=== PATIENT | female | born 1990 | race Caucasian/White ===

== ENCOUNTER 2018-05-29 11:41 | Outpatient (REF) | payer MEDICAID, SELFPAY ==
--- NOTE | 2018-05-29 10:30 | PAPFT_PTH ---
PATIENT: Driss Campa LOC: [facility] U#:[id number] AGE/SX: 28/F ROOM: RE05/29/[address]: Lilliam Salas NP : 1990 BED: DIS: 05/29/2018 SPEC #: [id number] RECD: 05/29/18 12:52 STATUS: INEZ BARRON #: [id number] ANIL: 05/29/18 10:[address]: Lilliam Salas NP DEPT: [facility] Cytology RECD BY: Moon Waite ENTERED: 05/29/18 12:52 SP TYPE: PAPFT OTHR DR: Lisbeth Kamara APRN Tissues: 1 - CX/ENDOCX FOR PAP SMEARS Procedures: PAP THIN PREP/UVM Screening Comments: [id number] (CHLAMYDIA/GC)
[2018-05-30 14:38] LABS: Chlamydia Result Negative; GC Result Negative; Specimen Description SEE COMMENTS
== END 2018-05-29 12:01 ==
LOC: LBN 11:41
PROVIDERS: PCP Nurse Practitioner Family; Visit Provider Nurse Practitioner Women's Health
DX: Z12.4 Encounter for screening for malignant neoplasm of cervix (principal); Z11.3 Encounter for screening for infections with a predominantly sexual mode of transmission
CPT/HCPCS: 87491; 87591; 88142

== ENCOUNTER 2018-10-11 11:14 | Outpatient (CLI) | payer MEDICAID, SELFPAY ==
[2018-10-11 11:32] LABS: HGB 12.8 g/dL (12.0-15.5); Mean Corp. HGB Concentration 33.7 g/dL (32.0-36.0); Mean Corpuscular Hemoglobin 31.1 pg (27.0-33.0); Mean Corpuscular Volume 92.5 fL (80-95); Mean Platelet Volume 9.5 fL (8.0-11.0); Platelet Count 278 x1000/uL (130-400); RBC 4.11 m/cumm (4.00-5.20); RBC Distribution Width 13.5 % (11.7-14.6); White Blood Cell Count 7.43 k/cumm (4.4-10.8)
[2018-10-11 12:34] LABS: TSH (W/Ref FT4) 0.91 uIU/mL (0.358-3.74)
== END 2018-10-11 11:34 ==
PROVIDERS: PCP Nurse Practitioner Family; Visit Provider Nurse Practitioner Women's Health
DX: L65.9 Nonscarring hair loss, unspecified (principal)
CPT/HCPCS: 36415; 85027; 84443

== ENCOUNTER 2018-10-30 13:08 | Outpatient (CLI) | payer MEDICAID, SELFPAY ==
[2018-11-01 12:25] LABS: IgA 247 mg/dL (85-499); Interpretation SEE COMMENTS; Tissue Transglutaminase IgA <1.2 U/mL (<4.0)
== END 2018-10-30 13:28 ==
PROVIDERS: PCP Nurse Practitioner Family; Visit Provider Nurse Practitioner
DX: R19.8 Other specified symptoms and signs involving the digestive system and abdomen (principal); Z83.79 Family history of other diseases of the digestive system
CPT/HCPCS: 82784; 83516

== ENCOUNTER 2020-01-20 04:06 | Outpatient (CLI) | payer MEDICAID, SELFPAY ==
[2020-01-20 08:35] LABS: Hemoglobin A1C 5.5 % (<5.7)
[2020-01-21 12:18] LABS: Hepatitis C Ab w Rflx HCV PCR Negative (Negative)
== END 2020-01-20 04:26 ==
PROVIDERS: PCP Nurse Practitioner Family; Visit Provider Nurse Practitioner Family
DX: Z11.59 Encounter for screening for other viral diseases (principal); Z86.32 Personal history of gestational diabetes
CPT/HCPCS: 36415; 86803; 83036

== ENCOUNTER 2020-03-26 04:22 | Outpatient (CLI) | payer MEDICAID, SELFPAY ==
--- NOTE | 2020-03-26 06:15 | DI.RAD_ITS ---
EXAM: XR FINGER RT LITTLE CLINICAL HISTORY: Pain, swelling ?ortho vs. other?,M79.89,M79.644. TECHNIQUE: 2D digital imaging was performed. COMPARISON: No exams were available for comparison FINDINGS: BONES: No acute fracture is present. No bony destructive lesion is seen. JOINTS: No dislocation present. SOFT TISSUE: Normal. IMPRESSION: No evidence of acute fracture, dislocation, or subluxation. DATA REPOSITORY: RADIATION DOSE DELIVERED:
== END 2020-03-26 04:42 ==
PROVIDERS: PCP Nurse Practitioner Family; Visit Provider Nurse Practitioner Family
DX: M79.644 Pain in right finger(s) (principal); M79.89 Other specified soft tissue disorders
CPT/HCPCS: 73140

== ENCOUNTER 2020-03-29 05:07 | Outpatient (CLI) | payer MEDICAID, SELFPAY ==
[2020-04-01 04:57] LABS: Patient Race White; SARS-CoV-2 RNA Undetected (Undetected); SARS-CoV-2 Specimen Source Nasal
== END 2020-03-29 05:27 ==
PROVIDERS: PCP Nurse Practitioner Family; Visit Provider Nurse Practitioner Family
DX: J11.89 Influenza due to unidentified influenza virus with other manifestations (principal)
CPT/HCPCS: U0003

== ENCOUNTER 2021-04-06 11:58 | Outpatient (REF) | payer MEDICAID, SELFPAY ==
--- NOTE | 2021-04-06 09:15 | PAPFT_PTH ---
PATIENT: Driss Campa LOC: [facility] U#:[id number] AGE/SX: 30/F ROOM: RE04/06/[address]: Lilliam Salas NP : 1990 BED: DIS: 04/06/2021 SPEC #: [id number] RECD: 04/06/21 12:47 STATUS: INEZ REQ #: [id number] ANIL: 04/06/21 09:[address]: Josue MELTON,Lilliam DEPT: [facility] Cytology RECD BY: Moon Waite ENTERED: 04/06/21 12:47 SP TYPE: PAPFT OTHR DR: Lisbeth Kamara APRN Tissues: 1 - CX/ENDOCX FOR PAP SMEARS Procedures: PAP THIN PREP/UVM Screening HPV DNA PROBE Comments: [id number] (CHLAMYDIA/GC)
[2021-04-07 13:39] LABS: Chlamydia Result Negative (Negative); GC Result Negative (Negative)
== END 2021-04-06 11:59 | disposition home or self-care (01) ==
LOC: LBN 11:58
PROVIDERS: PCP Nurse Practitioner Family; Visit Provider Nurse Practitioner Women's Health
DX: Z12.4 Encounter for screening for malignant neoplasm of cervix (principal); Z11.3 Encounter for screening for infections with a predominantly sexual mode of transmission; R87.610 Atypical squamous cells of undetermined significance on cytologic smear of cervix (ASC-US); Z11.51 Encounter for screening for human papillomavirus (HPV); R87.820 Cervical low risk human papillomavirus (HPV) DNA test positive
CPT/HCPCS: 87491; 87591; 88142; 87624

== ENCOUNTER 2021-04-21 11:32 | Outpatient (REF) | payer MEDICAID, SELFPAY ==
--- NOTE | 2021-04-21 09:00 | ENDO_PTH ---
PATIENT: Driss Campa LOC: [facility] U#:[id number] AGE/SX: 30/F ROOM: RE04/21/[address]: Rima Quinonez DO : 1990 BED: DIS: 04/21/2021 SPEC #: [id number] RECD: 04/21/21 12:35 STATUS: INEZ REQ #: [id number] ANIL: 04/21/21 09:[address]: Rima Quinonez DEPT: Surgical Specimen RECD BY: Moon Waite ENTERED: 04/21/21 12:35 SP TYPE: Endo OTHR DR: Lisbeth Kamara APRN Tissues: 1 - ENDOCERVICAL BX/CURRETTE 2 - CERVICAL BIOPSY Procedures: GROSS AND MICRO LEVEL 4 Comments: [id number]
== END 2021-04-21 11:33 | disposition home or self-care (01) ==
LOC: LBN 11:32
PROVIDERS: PCP Nurse Practitioner Family; Visit Provider Obstetrics & Gynecology
DX: D26.0 Other benign neoplasm of cervix uteri (principal)
CPT/HCPCS: 88305

== ENCOUNTER 2022-01-27 15:30 | Outpatient (REF) | payer MEDICAID, SELFPAY ==
[2022-01-30 11:23] LABS: Measles IgG Antibody Positive (See Note)
[2022-01-30 11:25] LABS: Rubella IgG Ab (UVM) Positive (See Note)
[2022-02-01 16:26] LABS: Measles (Rubeola), IgM Negative (Negative)
[2022-02-07 14:12] LABS: Index Value 1.61 (0.00-0.79); Mumps Ab, IgG Equivocal; Mumps Ab, IgM Positive (Negative)
== END 2022-01-27 15:31 | disposition home or self-care (01) ==
LOC: LBN 15:30
PROVIDERS: PCP Nurse Practitioner Family; Visit Provider Nurse Practitioner Family
DX: Z01.84 Encounter for antibody response examination (principal); Z02.0 Encounter for examination for admission to educational institution
CPT/HCPCS: 83735; 86735; 86765; 86762

== ENCOUNTER → 2022-03-03 01:05 | Outpatient (CLI) | payer MEDICAID, SELFPAY ==
--- OUTSIDE RECORDS SUMMARY | 2022-03-03 01:09 | XMS_ITS | Clinical Summary ---
:1990 Author Organization [facility] [place] [address] Care Team Providers Name Role Phone Lisbeth Kamara APRN Primary Care Provider Allergies Active Allergy Reactions Severity Noted Date Comments Nickel 02/08/2022 Hydrocodone-Acetaminophen 02/08/2022 Medications No known medications Encounters Date Type Specialty Care Team Description 02/27/2022 Telephone Orthopaedics Leonel Weems MD Question s 02/08/2022 Hospital Encounter Radiology Leonel Weems MD Ma ss of left wrist 02/08/2022 Office Visit Orthopaedics Leonel Weems MD Mass of left wrist 01/30/2022 Transcribe Orders Primary Care Maia Best, RYDER Cunningham glion cyst of wrist, left from Last 3 Months Social History Tobacco Use Types Packs/Day Years Used Date Never Smoker Sex Assigned at Date Recorded Not on file Last Filed Vital Signs Vital Sign Reading Time Taken Comments Blood Pressure 102/56 02/08/2022 4:37 PM EDT Pulse 86 02/08/2022 4:37 PM EDT Temperature 36.7 ??C (98.1 ??F) 02/08/2022 4:37 PM EDT Respiratory Rate - - Oxygen Saturation - - Inhaled Oxygen Concentration - - Weight 77.1 kg (169 lb 14.4 oz) 02/08/2022 4:37 PM EDT Height 162.6 cm (5' 4) 02/08/2022 4:37 PM EDT Body Mass Index 29.16 02/08/2022 4:37 PM EDT Plan of Treatment Upcoming Encounters Date Type Specialty Care Team Description 05/08/2022 Hospital Encounter Surgery Leonel Weems MD [facility] ORTHOPAEDIC SURG [place], [place] [address] (Wo rk) 05/08/2022 Surgery Surgery Leonel Weems MD EXCISION GANGLION, [facility] WRIST, DO RSAL OR VOLAR, DR PRIMARY (WRVU 3.53) ORTHOPAEDIC SURG [place], [place] [address] (Wo rk) 05/23/2022 Office Visit Orthopaedics Leonel Weems MD [facility] ORTHOPAEDIC SURG [place], [place] [address] (Wo rk) Scheduled Procedures Name Priority Associated Diagnoses Date/Time EXCISION GANGLION, WRIST, DORSAL Mass of left wr ist 05/08/2022 7:35 AM EST OR VOLAR, PRIMARY (WRVU 3.53) Health Maintenance Due Date Last Done Comments Covid-19 Vaccine (#1) 1990 HIV screen 2010 Hepatitis C Screening 2010 Tdap adult 2011 Tetanus vaccine 2011 PAP Smear 2013 Influenza (Flu) vaccine (1 of 1 - Influenza standard 01/19/2022 series) Procedures Procedure Name Priority Date/Time Associated Diagnosis Comme nts XR WRIST 3 VIEWS Routine 02/08/2022 5:58 PM Mass of left wrist Results for this LEFT EDT procedure are i n the results section. from Last 3 Months Results XR Wrist 3 Views Left (02/08/2022 5:58 PM EDT) Anatomical Region Laterality Modality Left Digital Radiography Specimen (Source) Anatomical Location Collection Method / Collectio n Time Received Time / Laterality Volume Impressions 02/09/2022 3:09 PM EDT Normal wrist radiograph. I have personally reviewed the image(s) and the resident's interpretation and agree with the findings, Shahana Renae MD at 02/09/2022 3:09 PM Thank you for letting us participate in the care of this patient. ??If you are a health care provider and have any questi ons regarding this report, please contact the number below. ??For patients who have questions please contact the health healthcare receptionist that requested your imaging first. ? Electronically signed by: Xavi Vieira, [facility] ([phone]), at 02/09/2022 3:09 PM Narrative 02/09/2022 3:09 PM EDT EXAMINATION: XR WRIST 3 VIEWS LEFT CLINICAL HISTORY: left wrist pain few we eks, likely ganglion cyst, eval underlying bony pathology (as entered by the ordering provider in the order requisition). TECHNIQUE: Lateral, PA, and oblique views of the le ft wrist. COMPARISON: None FINDINGS: No fracture or malalignment. The joint s paces and articular surfaces are normal. No destructive osseous lesions. No soft tissue swelling. Procedure Note Shahana Renae MD - 02/09/2022Formattin g of this note might be different from the original. EXAMINATION: XR WRIST 3 VIEWS LEFT CLINICAL HISTORY: left wrist pain few we eks, likely ganglion cyst, eval underlying bony pathology (as entered by the ordering provider in the order requisition). TECHNIQUE: Lateral, PA, and oblique views of the le ft wrist. COMPARISON: None FINDINGS: No fracture or malalignment. The joint s paces and articular surfaces are normal. No destructive osseous lesions. No soft tissue swelling. IMPRESSION Normal wrist radiograph. I have personally reviewed the image(s) and the resident's interpretation and agree with the findings, Shahana Renae MD at 02/09/2022 3:09 PM Thank you for letting us participate in the care of this patient. If you are a health care provider and have any questi ons regarding this report, please contact the number below. For patients w ho have questions please contact the health healthcare receptionist that requested your imaging first. 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
--- OUTSIDE RECORDS SUMMARY | 2022-03-03 01:09 | XMS_ITS | Encounter Summary ---
:1990 Author Organization [facility] [place] [address] Care Team Providers Name Role Phone Lisbeth Kamara APRN Primary Care Provider Encounter Details Date Type Department Care Team Description 02/08/2022 Hospital Encounter XRay at [facility] Leonel Weems, Mass of left wrist [address] [place] [address] Dr MD [place] [id number] [place] [address] ORTHOPAEDIC SURGERY [place] [id number] Social History Tobacco Use Types Packs/Day Years Used Date Never Smoker Sex Assigned at Date Recorded Not on file documented as of this encounter Plan of Treatment Upcoming Encounters Date Type Specialty Care Team Description 05/08/2022 Hospital Encounter Surgery Leonel Weems MD [facility] ORTHOPAEDIC SURG [place], [place] [address] (Wo rk) 05/08/2022 Surgery Surgery Leonel Weems MD EXCISION GANGLION, [facility] WRIST, DO RSAL OR VOLAR, DR YOU (WRVU 3.53) ORTHOPAEDIC SURG [place], [place] [address] (Wo rk) 05/23/2022 Office Visit Orthopaedics Leonel Weems MD [facility] ORTHOPAEDIC SURG [place], [place] [address] (Wo rk) Scheduled Procedures Name Priority Associated Diagnoses Date/Time EXCISION GANGLION, WRIST, DORSAL Mass of left wr ist 05/08/2022 7:35 AM EST OR VOLAR, PRIMARY (WRVU 3.53) documented as of this encounter Procedures Procedure Name Priority Date/Time Associated Diagnosis Comme nts XR WRIST 3 VIEWS Routine 02/08/2022 5:58 PM Mass of left wrist Results for this LEFT EDT procedure are i n the results section. documented in this encounter Results XR Wrist 3 Views Left (02/08/2022 5:58 PM EDT) Anatomical Region Laterality Modality Left Digital Radiography Specimen (Source) Anatomical Location Collection Method / Collectio n Time Received Time / Laterality Volume Impressions 02/09/2022 3:09 PM EDT Normal wrist radiograph. I have personally reviewed the image(s) and the resident's interpretation and agree with the findings, Shahana Rneae MD at 02/09/2022 3:09 PM Thank you for letting us participate in the care of this patient. ??If you are a health care provider and have any questi ons regarding this report, please contact the number below. ??For patients who have questions please contact the health senior care specialist that requested your imaging first. ? Narrative 02/09/2022 3:09 PM EDT EXAMINATION: XR [...] ho have questions please contact the health senior care specialist that requested your imaging first. Leonel Weems MD IMG DX ORDERABLES documented in this encounter Visit Diagnoses Diagnosis Mass of left wrist Mass of left wrist documented in this encounter Care Teams Manager Medicare Marketing Relationship Specialty Start Date End Date Lisbeth Kamara APRN PCP - General 02/09/[address] [place] [address] documented as of this encounter
--- OUTSIDE RECORDS SUMMARY | 2022-03-03 01:09 | XMS_ITS | Encounter Summary ---
:1990 Author Organization [facility] [place] [address] Care Team Providers Name Role Phone Esperanza Kamaraestrella Duron APRN Primary Care Provider Reason for Visit Reason Comments Establish Care Ganglion cyst left wrist Consultation (Urgent) - Closed Specialty Diagnoses / Procedures Referred By Contact Refer red To Contact Orthopaedics Diagnoses LEFT WRIST PAIN, LUMP, GANGLION CYST UNDER/NEAR THUMB Maia Best PA [facility] Orthopaedics [address] [place], [place] [address] [place] [address] Fax: Referral ID Status Reason Start Date Expiration Date Visits Requ ested Visits Authorized [id number] Closed 01/30/2022 01/30/2023 1 1 Encounter Details Date Type Department Care Team Description 02/08/2022 Office Visit Orthopaedics [place] [facility] Leonel Weems A, Mass of left wrist [facility] [place] [address] [facility] [phone] ORTHOPAEDIC SURGERY [place], [place] [address] Social History Tobacco Use Types Packs/Day Years Used Date Never Smoker Sex Assigned at Date Recorded Not on file documented as of this encounter Last Filed Vital Signs Vital Sign Reading [...] Mass Index 29.16 02/08/2022 4:37 PM EDT documented in this encounter Progress Notes Leonel Weems MD - 02/08/2022 4:30 PM EDT ORTHOPAEDIC SURGERY CLINIC NEW PATIENT EVALUATION DATE OF VISIT: 02/08/22 Chief complaint: Chief Complaint Patient presents with ??? Establish Care Ganglion cyst left wrist Date of injury: n/a History of present illness: Driss Campa is a 31 y.o. year-old female LHD who is seen today for Left volar wrist mass Feels she has had wrist pain for some time, had wrist pain for a week before the bump showed up, then noticed the bump approximately 2 weeks ago. Tried resting it, had trouble sleeping due to pain. Continued normal activities but with discomfort. Trialed OTC wrist brace with some improvement. Did see urgent care. Denies any known injury. No Xrays to date. Bump changes in size day to day. States pinching sensations sometimes with certain wrist movements. Occasional numbness in fingers transient at end of the day. Today feels bump was larger. 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 Past Medical history: There are no problems to display for this patient. History of blood clots or bleeding disorders: Denies Medications: No current outpatient medications on file. Allergies: Allergies Allergen Reactions ??? Nickel ??? Vicodin [Hydrocodone-Acetaminophen] Social history: Social History Tobacco Use ??? Smoking status: Never Smoker ??? Smokeless tobacco: Not on file Substance Use Topics ??? 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 No flowsheet data found. No flowsheet data found. Vital signs: Temp: [36.7 ??C (98.1 ??F)] Heart Rate: [86] BP: (102)/(56) Body mass index is 29.16 kg/m??. Physical Exam: No acute distress Affect within normal limits for age Alert and oriented Speech clear and intact, appropriate for age Head atraumatic Respirations unlabored Brisk capillary refill peripheral bilateral upper extremities, warm and well perfused LUE examined: Sensation intact to light touch all digits and palm/dorsal hand today. Small subcentimeter volar radial wrist mass 5/5 EPL, FPL, EDC, FDP/FDS, WE, WF, GAURAV, 5/5 palmar abduction thumb No clinical deformity Supple pain free ROM wrist, symmetric Negative Tinel's sign at wrist and elbow, negative Durken's compression Imaging: Personal review of the patient's imaging reveals: Wrist xray negative for significant arthritis with osteophytes, bony mass at base of thumb, or evidence of fracture/dislocation. Assessment/Plan: 31 y.o. year-old female LHD with Left wrist pain x 2-3 weeks and small volar radialsoft tissue fullness for 2 weeks most consistent with Ganglion cyst. We did discuss a full differential for lumps and bumps in the hand. Reviewed options for operative and nonoperative treatment. Given proximity to artery at volar wrist, do not recommend aspiration/injection trials. We did review clinical observation vs further imaging, with patient preference for imaging and removal. We discussed at length indications for removal -- I reviewed specifically that cysts are often not associated with pain, and her acute wrist pain may or may not be related to this small mass. She very much wanted removal, and we discussed in detail risks of surgery, including worsening pain, stiffness, scar, injury to artery or associated structures, as well as recurrence. I did suggest observation with further imaging, but if she would like removal after understanding the risks and potential for persistent symptoms, we can arrange that for her after a period of observation and an Ultrasound. Plan: Ultrasound wrist ordered Activity as tolerated Symptomatic treatment of pain Recommended wrist splint during activity, padding over mass. Surgical order is placed for patient planning at her request. Patient to call sooner with any questions or concerns. This plan was discussed with the patient and they are in agreement. All of the patient's questions were answered, and they were satisfied with the discussion. Follow up: Telemed or inperson visit after ultrasound. The above dictation was made with voice recognition software. Leonel Weems MD, MPH Department of Orthopaedic Surgery Pediatric Orthopaedic & Hand Surgeon Siena Ji RN - 02/08/2022 4:30 PM EDT Pre Op Education General Guidelines: Driss was educated on importance of staying healthy and maintaining skin integrity, especially of effected arm pre-op. She will inform us of any skin rashes, breaks in skin or illnesses prior to surgery. There is not any skin break down today. General post op guidelines discussed including hydration, nutrition, constipation, and dressing changes. Management of the extremity post op was also discussed to include DME use and rest, ice, elevation. Driss was given a bottle of Hibiclens to be used in the shower the night before and the morning of their procedure. Showering instructions were reviewed. We reviewed medications to stop prior to surgery: - no ASA or NSAIDS 7 days prior to surgery. 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 No flowsheet data found. Driss Campa will NOT be prescribed a prescription opioid for the treatment of acute post-operative pain related to Orthopedic surgery. Patient was given vicoden after wisdom teeth were out and this made her very sick. She does not wantany narcotics. In addition to this medication, non-opioid medications will be prescribed for adjunct treatment of their pain. Non-pharmacological treatment such as ice, elevation and activity modification will be recommended as appropriate. The Acute Opioid Therapy Informed Consent form has NOT been completed and sent to medical records for scanning to chart. Written material given: Ortho department phone Tree. Ultrasound order, Patient is to book at hospital closer to her home. Directions to the [facility] Patient stopped for x ray of wrist upon leaving today. Questions solicited and answered. She knows to call with any additional questions or concerns. Driss was advised to read the post-op instructions from day of surgery for specific recommendations and restrictions post-operatively. Siena Ji RN [facility] Ortho Team documented in this encounter Plan of Treatment Upcoming Encounters Date Type Specialty Care Team Description 05/08/2022 Hospital Encounter Surgery Leonel Weems MD [facility] DR ORTHOPAEDIC SURG [place], [place] [address] (Wo rk) 05/08/2022 Surgery Surgery Leonel Weems MD EXCISION GANGLION, [facility] WRIST, DO RSAL OR VOLAR, DR YOU (WRVU 3.53) ORTHOPAEDIC SURG [place], [place] [address] (Wo rk) 05/23/2022 Office Visit Orthopaedics Leonel Weems MD [facility] ORTHOPAEDIC SURG [place], [place] [address] (Wo rk) Scheduled Orders Name Type Priority Associated Diagnoses Order S chedule US Extremity Non Imaging Routine Mass of left wrist Expec francheska: 02/09/2022, Vascular Limited Left s: 08/11/2022 SURGICAL CASE REQUEST: Procedures Routine Mass of left wrist Ordered: 02/12/2022 EXCISION GANGLION, WRIST, DORSAL OR VOLAR, PRIMARY (WRVU 3.53) Scheduled Procedures Name Priority Associated Diagnoses Date/Time EXCISION GANGLION, WRIST, DORSAL Mass of left wr ist 05/08/2022 7:35 AM EST OR VOLAR, PRIMARY (WRVU 3.53) documented as of this encounter Results XR Wrist 3 Views [...] who have questions please contact the health care partner that requested your imaging first. ? Narrative [...] interpretation and agree with the findings, Shahana eRnae MD at 02/09/2022 3:09 PM Thank you for letting us participate in the care of this patient. If you are a health care provider and have any questi ons regarding this report, please contact the number below. For patients w ho have questions please contact the health care partner that requested your imaging first. Leonel Weems MD IMG DX ORDERABLES documented in this encounter Visit Diagnoses Diagnosis Mass of left wrist Mass of left wrist Mass of left wrist documented in this encounter Care Teams Sign Shop Supervisor Relationship Specialty Start Date End Date Lisbeth Kamara, BLAST FURNACE CHECKER PCP - General 02/09/15 [address] [facility] [address] [place] [address] documented as of this encounter
--- OUTSIDE RECORDS SUMMARY | 2022-03-03 01:09 | XMS_ITS | Encounter Summary ---
:1990 Author Organization [facility] [address] Care Team Providers Name Role Phone Lisbeth Kamara APRN Primary Care Provider Reason for Visit Reason Onset Date Comments Questions 02/27/2022 Encounter Details Date Type Department Care Team Description 02/27/2022 Telephone [place] [facility] Leonel Weems MD [facility] [address] [facility] [place] [address] ORTHOPAEDIC SURGERY [phone] [place], [place] [address] (Wo rk) Social History Tobacco Use Types Packs/Day Years Used Date Never Smoker Sex Assigned at Date Recorded Not on file documented as of this encounter Miscellaneous Notes Telephone Encounter - Siena Ji RN - 02/28/2022 8:24 AM EDT Gave permission for Ultrasound to be done externally. Plan patient to have Ultrasound done at [facility]. Fax # Siena Ji RN [facility] [place] Telephone Encounter - Adriana Leyva - 02/27/2022 2:37 PM EDTSummary: U/S ORDER Driss has spoken with [facility] and they have not received the order for her U/S that Dr. Weems needs. [facility] states when we send it electronically, they do not receive it. Could we please print it and FAXit the old fashioned way? FAX: [phone] Thank you! documented in this encounter Plan of Treatment Upcoming Encounters Date Type Specialty Care Team Description 05/08/2022 Hospital Encounter Surgery Leonel Weems MD [facility] ORTHOPAEDIC SURG [place], [place] [address] (Wo rk) 05/08/2022 Surgery Surgery Leonel Weems MD EXCISION GANGLION, [facility] WRIST, DO RSAL OR VOLAR, PRIMARY (WRVU 3.53) ORTHOPAEDIC SURG [place], [place] [address] (Wo rk) 05/23/2022 Office Visit Orthopaedics Leonel Weems MD [facility] ORTHOPAEDIC SURG [place], [place] [address] (Wo rk) Scheduled Procedures Name Priority Associated Diagnoses Date/Time EXCISION GANGLION, WRIST, DORSAL Mass of left wr ist 05/08/2022 7:35 AM EST OR VOLAR, PRIMARY (WRVU 3.53) documented as of this encounter Visit Diagnoses Not on filedocumented in this encounter Care Teams Infant Teacher Relationship Specialty Start Date End Date Lisbeth Kamara APRN PCP - General 02/09/15 [address] [place] [address] documented as of this encounter
--- OUTSIDE RECORDS SUMMARY | 2022-03-03 01:09 | XMS_ITS | Encounter Summary ---
:1990 Author Organization [facility] Address [address] [place] [address] Care Team Providers Name Role Phone Unknown, Provider Primary Care Provider Encounter Details Date Type Department Care Team Description 04/21/2021 Lab Requisition [facility] Rima Quinonez Encounter for other Pathology & [facility] general examination Laboratory Medicine [facility] [id number] [address] [facility] [phone] [place] [address] (Work) [phone] Social History Tobacco Use Types Packs/Day Years Used Date Never Assessed Sex Assigned at Date Recorded Not on file documented as of this encounter Plan of Treatment Not on filedocumented as of this encounter Procedures Procedure Name Priority Date/Time Associated Diagnosis Comme nts SURGICAL PATHOLOGY Today 04/21/2021 9:00 EST Encounter for o ther Results for this general examination procedur e are in the results section. documented in this encounter Results SURGICAL PATHOLOGY (04/21/2021 9:00 EST) Note to Patient The following [facility] MEDICAL pathology results CENTER have been interpreted LABORATORY by your pathologist SERVICES and may be available to you before your health provider has had the opportunity to review them. Please allow time for your provider to receive these results and explore management options, if applicable. Final Diagnosis A. CERVIX, ENDOCERVICAL CURETTAGE: [facility] MEDICAL - Fragments of benign endocervix. CENTER LABORATORY B. CERVIX, 2 O'CLOCK, BIOPSY: SERVICES - Benign squamous mucosa with reactive epithelial vega ges. Attestation There was significant [facility] MEDICAL Electr onically resident/fellow CENTER signed by Rafael connell, involvement in the LABORATORY Maninder Alan MD on diagnostic evaluation SERVICES 021 at 0930 of this case. By the signature below, the attending physician certifies that they have personally conducted a gross and/or microscopic examination of the described specimens and rendered or confirmed the above diagnosis. Clinical History ASCUS +HR HPV [facility] LABORATORY SERVICES Gross Description A. [facility] MEDICAL Received in formalin mark anthony d with proper patient identification (initials M, L) and ECC is an aggregate of clear colorless mucinous material admixed with scant fragments of cooper-white tissue. The spec CENTER imen measures 1.0 x 0.5 x 0.2 cm in aggr egate and is submitted entirely in A1. LABORATORY SERVICES B. Received in formalin mark anthony d with proper patient identification (initials M, L) and cervix bx 2 o'clock is a cooper-white tissue measuring 0.2 x 0.2 x 0.2 cm. Submitted intact in B1. RYDER DOWNING(ASCP) 04/21/2021 18:07 Resident/Fellow: Elsie German DO [facility] LABORATORY SERVICES Performing Lab [facility] LAB [facility] LABORATORY SERVICES Scanned Images [facility] LABORATORY SERVICES Specimen Tissue - Entire wall of cervix (body str ucture) Tissue specimen (specimen) - Entire wall of cervix (body structure) Performing Organization Address City/State/ZIP Code Phon e Number [facility] LABORATORY [address] [place] [address] SERVICES documented in this encounter Visit Diagnoses Diagnosis Encounter for other general examination documented in this encounter Care Teams Cash Register Operator Relationship Specialty Start Date End Date Unknown, Provider, PCP - General 07/17/13 documented as of this encounter
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
--- OUTSIDE RECORDS SUMMARY | 2022-03-03 01:09 | XMS_ITS | Encounter Summary ---
:1990 Author Organization [facility] [place] [address] Care Team Providers Name Role Phone Lisbeth Kamara APRN Primary Care Provider Reason for Visit Reason Comments Skin Lesion Consultation (Routine) - Closed Specialty Diagnoses / Procedures Referred By Contact Refer red To Contact Dermatology Diagnoses Disorder of the skin and subcutaneous tissue, unspecified Lisbeth Kamara APRN [facility] Dermatology [address] [place] [id number] Referral ID Status Reason Start Date Expiration Date Visits V isits Requested Authorized [id number] Closed Consult, Test 06/28/2020 06/28/2021 6 [facility] PCP Updated and/or Approved Encounter Details Date Type Department Care Team Description 08/02/2020 Office Visit Dermatology at [facility] Fibrous papule of Bozena Freed MD nose [address] [place] [address] [facility] [address]-DERMATOLOGY [place], [place] [address] Social History Tobacco Use Types Packs/Day Years Used Date Never Smoker Sex Assigned at Date Recorded Not on file documented as of this encounter Progress Notes Venessa Abarca MD - 08/02/2020 11:00 AM EDT Images from the original note were not included. DERMATOLOGY - NEW PATIENT NOTE Date of service: 08/02/2020 Driss Kaur : 1990, 30 y.o. Chief Complaint: Chief Complaint Patient presents with ??? Skin Lesion HPI: Driss Kaur is a 30 y.o. female referred by Lisbeth Kamara with the following concerns: - Lesion on the left side of nose, present ~ 6 months, not changing in size. Has bled after picking at it, but has since healed and is now a flesh colored bump. Denies tenderness. Relevant Skin History: - Okay to leave detailed message with results? yes - Skin cancer (including type): No Family History: Melanoma: No Relevant Social History: - Works at a [employer] Meds: Current Outpatient Medications Medication Sig Dispense Refill ??? DEBLITANE 0.35 mg Tablet 0 No current facility-administered medications for this visit. Allergies: No Known Allergies Review of Systems: - General: Feels well - Skin: No other skin concerns. Examination: - Constitutional: Patient was alert, well-appearing and in no noticeable distress. - Focused Exam: Skin examination of the face was normal with the exception of the findings listed below - A nurse/MA was present and on standby during my examination. 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 Inferior to it is a similar somewhat flatter lesion. - Discussed etiology and benign nature of lesion - No treatment necessary # Keratosis Pilaris - On the lateral upper extremities, pink slightly hyperkeratotic follicular based papules. Keratosis pilaris is an exceedingly common, benign skin disorder of the follicular orifice, commonlyreferred to as gooseflesh. It is characterized by small hair centered papules on the posterior upper arms and thighs due to the retention of skin at the follicular opening. It is seen most frequentlyin children, adolescents, and young adults, and is particularly common in individuals with underlying eczema. Dry weather may make these skin changes more pronounced. Frequently, there is a family history of the condition - Discussed etiology - Advised Amlactin (Ammonium Lactate) or CeraVe SA or KP kit by [place] C: PRN Note initiated by WALE Saunders. I, WALE Saunders, have performed the documentation for this encounter in the presence of and acting as a scribe for Venessa Abarca MD. I performed the services which were documented by the scribe, and I agree with the accuracy of the documentation in this encounter. Venessa Abarca MD Reviewed and signed by Venessa Abarca MD Resident in Dermatology [facility] Patient seen in conjunction with staff computer help desk representative: Cristy Reagan MD Department of Dermatology [facility] Cristy Reagan MD - 08/02/2020 11:00 AM EDT I directly supervised the Dermatology resident during this office visit. The resident presented the history and physical exam to me. I then saw and examined this patient with the resident. We reviewed the history and pertinent details and I confirmed the physical findings. I agree with the details of the history and physical exam as documented in the resident's note. CRISTY REAGAN MD Staff Physician documented in this encounter Plan of Treatment Upcoming Encounters Date Type Specialty Care Team Description 05/08/2022 Hospital Encounter Surgery Leonel Weems MD [facility] ORTHOPAEDIC SURG [place], [place] [address] (Wo rk) 05/08/2022 Surgery Surgery Leonel Weems MD EXCISION GANGLION, [facility] WRIST, DO RSAL OR VOLAR, PRIMARY (WRVU 3.53) ORTHOPAEDIC SURG [place], [place] [address] (Wo rk) 05/23/2022 Office Visit Orthopaedics Leonel Weems MD [facility] DR ORTHOPAEDIC SURG [place], [place] [address] (Wo rk) Scheduled Procedures Name Priority Associated Diagnoses Date/Time EXCISION GANGLION, WRIST, DORSAL Mass of left wr ist 05/08/2022 7:35 AM EST OR VOLAR, PRIMARY (WRVU 3.53) documented as of this encounter Visit Diagnoses Diagnosis Fibrous papule of nose Benign neoplasm of skin of other and uns pecified parts of face Mass of left wrist documented in this encounter Care Teams Skid Man Relationship Specialty Start Date End Date Lisbeth Kamara APRN PCP - General 02/09/[address] [place] [address] documented as of this encounter
--- OUTSIDE RECORDS SUMMARY | 2022-03-03 01:09 | XMS_ITS | Clinical Summary ---
:1990 Author Organization [facility] Address [address] [place] [address] Care Team Providers Name Role Phone Unknown, Provider Primary Care Provider Encounters Date Type Specialty Care Team Description 01/27/2022 Lab Requisition Clinical Laboratory Outr Resulting Lab , Provider from Last 3 Months Social History Tobacco Use Types Packs/Day Years Used Date Never Assessed Sex Assigned at Date Recorded Not on file Plan of Treatment Health Maintenance Due Date Last Done Comments COVID-19 Vaccine (1) 1997 Hepatitis C Screen Completed 01/20/2020 Procedures Procedure Name Priority Date/Time Associated Diagnosis Comme nts MEASLES IGG AB Routine 01/27/2022 14:50 Results f or this EDT procedure are i n the results section. RUBELLA IGG Routine 01/27/2022 14:50 Results for this ANTIBODY EDT procedure are i n the results section. from Last 3 Months Results MEASLES IGG AB (01/27/2022 14:50 EDT) Measles IgG Ab PositiveComment: See Note [facility] Presence of LABORATORY SERVICES detectable measles virus IgG antibodies. Specimen Blood - Venous blood (substance) Performing Organization Address City/[facility]/ZIP Code Phon e Number [facility] LABORATORY [address] [place] [address] SERVICES RUBELLA IGG ANTIBODY (01/27/2022 14:50 EDT) Rubella IgG Ab PositiveComment: See Note [facility] Positive for IgG LABORATORY SERVICES antibodies to Rubella virus. Specimen Blood - Venous blood (substance) Performing Organization Address City/[facility]/ZIP Code Phon e Number [facility] LABORATORY [address] [place] [address] SERVICES from Last 3 Months Insurance Payer Benefit Plan Subscriber ID Effective Phone Address Typ e / Group Dates MEDICAID ACO MEDICAID ACO [id number] 2021-Pres [phone] [address] Medicaid [place] [address] [place], [place] [address] KatsinanDriss N Personal/Family Self [phone] [place] [address] KatsinanDriss N Personal/Family Self [phone] [place] [address] Driss Braga N Personal/Family Self [phone] [place] [address] Care Teams Turbo Operator Relationship Specialty Start Date End Date Unknown, Provider, PCP - General 07/17/13
--- OUTSIDE RECORDS SUMMARY | 2022-03-03 01:09 | XMS_ITS | Encounter Summary ---
:1990 Author Organization [facility] [place] [address] Care Team Providers Name Role Phone Esperanza Kamaraestrella Duron APRN Primary Care Provider Reason for Referral Consultation (Urgent) - Closed Specialty Diagnoses / Procedures Referred By Contact Refer red To Contact Orthopaedics Diagnoses Ganglion cyst of wrist, left Maia Best PA [facility] Orthopaedics [address] [address] Fax: Referral ID Status Reason Start Date Expiration Date Visits V isits Requested Authorized [id number] Closed Consult, Test 01/30/2022 01/30/2023 6 6 & Treat PCP Updated and/or Approved Encounter Details Date Type Department Care Team Description 01/30/2022 Transcribe Orders eDH Incoming Maia Best Gangli on cyst of Referrals RYDER wrist, left [phone] [address] [place] [address] Social History Tobacco Use Types Packs/Day Years Used Date Never Assessed Sex Assigned at Date Recorded Not on file documented as of this encounter Plan of Treatment Upcoming Encounters Date Type Specialty Care Team Description 05/08/2022 Hospital Encounter Surgery Qudsi, Leonel A, MD [facility] ORTHOPAEDIC SURG [place], [place] [address] (Wo rk) 05/08/2022 Surgery Surgery Leonel Weems MD EXCISION GANGLION, [facility] WRIST, DO RSAL OR VOLAR, DR PRIMARY (WRVU 3.53) ORTHOPAEDIC SURG [place], [place] [address] (Wo rk) 05/23/2022 Office Visit Orthopaedics Leonel Weems MD [facility] ORTHOPAEDIC SURG [place], [place] [address] (Wo rk) Scheduled Procedures Name Priority Associated Diagnoses Date/Time EXCISION GANGLION, WRIST, DORSAL Mass of left wr ist 05/08/2022 7:35 AM EST OR VOLAR, PRIMARY (WRVU 3.53) Scheduled Referrals Name Type Priority Associated Order Schedule Diagnoses Referral to Outpatient Referral STAT Ganglion cyst of Orde red: Orthopaedics wrist, left 01/30/2022 documented as of this encounter Visit Diagnoses Diagnosis Ganglion cyst of wrist, left Mass of left wrist documented in this encounter Care Teams Surveyor Chain Helper Relationship Specialty Start Date End Date Lisbeth Kamara APRN PCP - General 02/09/[address] [place] [address] documented as of this encounter
--- OUTSIDE RECORDS SUMMARY | 2022-03-03 01:10 | XMS_ITS | Encounter Summary ---
:1990 Author Organization [facility] Address [address] [place] [address] Care Team Providers Name Role Phone Unknown, Provider Primary Care Provider Encounter Details Date Type Department Care Team Description 04/07/2021 Lab Requisition [facility] Lilliam Salas En counter for other Pathology & A, USER EXPERIENCE TEAM LEAD general examination Laboratory Medicine [address], [place] [address] [facility] [address] [place] [address] Social History Tobacco Use Types Packs/Day Years Used Date Never Assessed Sex Assigned at Date Recorded Not on file documented as of this encounter Plan of Treatment Not on filedocumented as of this encounter Procedures Procedure Name Priority Date/Time Associated Comments Diagnosis PAP TEST Today 04/06/2021 9:15 Encounter for other Resul ts for this EST general examination procedur e are in the results section. HUMAN PAPILLOMAVIRUS Today 04/06/2021 9:15 Encounter for oth er Results for this (HPV) DETECTION-HIGH EST general examination procedure are in RISK TYPES the results section. documented in this encounter Results (ABNORMAL) HUMAN PAPILLOMAVIRUS (HPV) DETECTION-HIGH RISK TYPES (04/06/2021 9:15 EST) Human Papillomavirus Positive (A)Comment: Negative [facility] (HPV) Detection-High E6 OR E7 mRNA from CENTER Types one or more types of LABORATORY HPV types SERVICES 16,18,31,33,35,39,45, 51,52,56,58,59,66, and 68 is detected by terminal make up operator mediated amplification. High and intermediate risk HPV types are associated with most squamous intraepithelial lesions and cervical cancers. Specimen Pap Test - Cervix and/or Endocervix Performing Organization Address City/State/ZIP Code Phon e Number [facility] [address] [place] [address] SERVICES PAP TEST (04/06/2021 9:15 EST) Specimens A. Cervix and/or [facility] Endocervix , ThinPrep CENTER Imaging System with LABORATORY Manual Evaluation SERVICES Specimen Adequacy Satisfactory for [facility] Evaluation - [place] transformation zone LABORATORY component present SERVICES General Epithelial Cell [facility] Categorization Abnormality CENTER LABORATORY SERVICES Descriptive Squamous Cell [facility] Diagnosis Abnormality - CENTER Atypical squamous LABORATORY cells, undetermined SERVICES significance (ASC-US). Educational Comments [facility] recommends following A SCCP's 2012 Updated Consensus Guidelines for the Management of Abnormal Cervical Cancer Screening Tests and Cancer Precursors (JLGTD, 2013; 17(5):S1-S27). Consensus guidelines are available online at www.asccp.org. [facility] Attestation By the signature below, the attending physician certifies that they have personally conducted a gross and/or microscopic [facility] Electronically examination of the described specimens and rendered or confirmed the above diagnosis. CENTER signed by MARGUERITE Kwon MD SERVICES on 04/19/2021 a t 1540 Clinical History See below [facility] HPV The result for the Human Pap illomavirus (HPV) Detection-High Risk Types is Positive . E6 OR E7 mRNA from one or more types of HPV types 16,18,31,33,35,39,45,51,52,56,58,59,66, and 68 is detected by barbosa [facility] scription mediated amplifica tion. High and intermediate risk HPV types are associated with most squamous intraepithelial lesions and cervical cancers. Testing was performed on specimen [id number] and CENTER was resulted on 04/19/2021 1533 EST by NIMESH, LAB INSTRUMENT RESULTS IN LABORATORY SERVICES Performing Lab [facility] Scanned Images [facility] Specimen Pap Test - Cervix and/or Endocervix Performing Organization Address City/State/ZIP Code Phon e Number [facility] [address] [place] [address] SERVICES documented in this encounter Visit Diagnoses Diagnosis Encounter for other general examination documented in this encounter Care Teams Water Manager Relationship Specialty Start Date End Date Unknown, Provider, PCP - General 07/17/13 documented as of this encounter
--- OUTSIDE RECORDS SUMMARY | 2022-03-03 01:10 | XMS_ITS | Encounter Summary ---
:1990 Author Organization [facility] Address [address] [place] [address] Care Team Providers Name Role Phone Unknown, Provider Primary Care Provider Encounter Details Date Type Department Care Team Description 07/16/2015 Results Only [facility]- Catherine Leavitt, [facility] [phone] [place] [address] [place] [address] (Wo rk) Social History Tobacco Use Types Packs/Day Years Used Date Never Assessed Sex Assigned at Date Recorded Not on file documented as of this encounter Plan of Treatment Not on filedocumented as of this encounter Procedures Procedure Name Priority Date/Time Associated Diagnosis Comme nts PAP TEST- RESULT Routine 07/16/2015 0:00 EST Resu lts for this ONLY procedure are i n the results section. documented in this encounter Results PAP TEST- RESULT ONLY (07/16/2015 0:00 EST) Pathology Report: CYTOPATHOLOGY REPORT [facility] Reports generated via electronic interface contain yesenia ginal data; SERVICES however they are lacking the format of the original re port. Caution should be taken when reading/interpreting unfo rmatted reports. Name: ? DRISS THURSTON VALERY ? Accession #: ? [id number] : ? 1990 (Age: 25) ??F ?Collect Date: ? 07/16 Location: ? [facility] ? Receive Date : ? 07/19/2015 Provider: ?CATHERINE BEGUM PETROPHYSICAL ENGINEER Copy to: ?USHA WONG PETROPHYSICAL ENGINEER ? Specimen/Source: ? Pap Test, Cervix/Endocervix, ThinPrep Imaging System with manual evaluation Last Menstrual Period: ? 06/18/15 ? SPECIMEN ADEQUACY ? Satisfactory for Evaluation - transformation zone component present GENERAL CATEGORIZATION ? Negative for Intraepithelial Lesion or Malignan cy ? Document reviewed and electronically signed by: ? Geraldine Mcelroy, LEILA(ASCP) ? Report Date: ??07/23/2015 12:14 End of Report Specimen Performing Organization Address City/State/ZIP Code Phon e Number [facility] [address] [place] [address] SERVICES documented in this encounter Visit Diagnoses Not on filedocumented in this encounter Care Teams Extrusion Manager Relationship Specialty Start Date End Date Unknown, Provider, PCP - General 07/17/13 documented as of this encounter
--- OUTSIDE RECORDS SUMMARY | 2022-03-03 01:10 | XMS_ITS | Encounter Summary ---
:1990 Author Organization [facility] Address [address] [place] [address] Care Team Providers Name Role Phone Unknown, Provider Primary Care Provider Encounter Details Date Type Department Care Team Description 01/20/2020 Lab Requisition [facility] Outr Resulting Lab, Pathology & Laboratory Provider [facility] [address] [place] [address] Social History Tobacco Use Types Packs/Day Years Used Date Never Assessed Sex Assigned at Date Recorded Not on file documented as of this encounter Plan of Treatment Not on filedocumented as of this encounter Procedures Procedure Name Priority Date/Time Associated Diagnosis Comme nts HEPATITIS C AB W Routine 01/20/2020 8:19 EDT Resu lts for this REFLEX TO HCV RNA procedure are in BY PCR the results section. documented in this encounter Results HEPATITIS C AB W REFLEX TO HCV RNA BY PCR (01/20/2020 8:19 EDT) Pathologist Sig nature Hep C Antibody Negative Negative [facility] SERVICES Specimen Blood - Venous blood (substance) Performing Organization Address City/State/ZIP Code Phon e Number [facility] [address] [place] [address] SERVICES documented in this encounter Visit Diagnoses Not on filedocumented in this encounter Care Teams Upholsterer Outside Relationship Specialty Start Date End Date Unknown, Provider, PCP - General 07/17/13 documented as of this encounter
--- OUTSIDE RECORDS SUMMARY | 2022-03-03 01:10 | XMS_ITS | Encounter Summary ---
:1990 Author Organization [facility] Address [address] [place] [address] Care Team Providers Name Role Phone Unknown, Provider Primary Care Provider Encounter Details Date Type Department Care Team Description 07/16/2013 Results Only [facility] Christy Lackey CNM Laboratory Services - [address] [facility] [address] [address] [facility] [place] [address] [phone] Social History Tobacco Use Types Packs/Day Years Used Date Never Assessed Sex Assigned at Date Recorded Not on file documented as of this encounter Plan of Treatment Not on filedocumented as of this encounter Procedures Procedure Name Priority Date/Time Associated Diagnosis Comme nts PAP TEST- RESULT Routine 07/16/2013 0:00 EST Resu lts for this ONLY procedure are i n the results section. documented in this encounter Results PAP TEST- RESULT ONLY (07/16/2013 0:00 EST) Pathology Report: CYTOPATHOLOGY REPORT [facility] Reports generated via electronic interface contain yesenia ginal data; however they are lacking the format of the original re port. Caution should be taken when reading/interpreting unfo rmatted reports. Name: ? DRISS THURSTON VALERY ? Accession #: ? [id number] : ? 1990 (Age: 23) ??F ?Collect Date: ? 06/22 Location: ? [facility] ? Receive Date : ? 07/18/2013 Provider: ?ROBENeha LACKEY CNM Copy to: ? Specimen/Source: ? Pap Test, Cervix/Endocervix, ThinPrep Imaging System with manual evaluation Last Menstrual Period: ? 05/20/13 Menstrual/ Status: ? Other: ? Additional clinical information: 1st Pap ? SPECIMEN ADEQUACY ? Satisfactory for Evaluation - transformation zone component present GENERAL CATEGORIZATION ? Negative for Intraepithelial Lesion or Malignan cy INTERPRETATION ? Fungal organisms pres ent morphologically consistent with Beverly species. ? Document reviewed and electronically signed by: ? LEILA Hunter(ASCP) ? Report Date: ??07/25/2013 15:45 End of Report Specimen Performing Organization Address City/State/ZIP Code Phon e Number [facility] [address] [place] [address] SERVICES [facility] [address] [place] [address] documented in this encounter Visit Diagnoses Not on filedocumented in this encounter Care Teams Loan Review Analyst Relationship Specialty Start Date End Date Unknown, Provider, PCP - General 07/17/13 documented as of this encounter
--- OUTSIDE RECORDS SUMMARY | 2022-03-03 01:10 | XMS_ITS | Encounter Summary ---
:1990 Author Organization [facility] Address [address] [place] [address] Care Team Providers Name Role Phone Unknown, Provider Primary Care Provider Encounter Details Date Type Department Care Team Description 05/29/2018 Results Only [facility]- Huseyin Taylor, TRANSITIONAL CARE NURSE [phone] [facility] [facility] [place] [address] Social History Tobacco Use Types Packs/Day Years Used Date Never Assessed Sex Assigned at Date Recorded Not on file documented as of this encounter Plan of Treatment Not on filedocumented as of this encounter Procedures Procedure Name Priority Date/Time Associated Diagnosis Comme nts PAP TEST- RESULT Routine 05/29/2018 0:00 EST Resu lts for this ONLY procedure are i n the results section. documented in this encounter Results PAP TEST- RESULT ONLY (05/29/2018 0:00 EST) Pathology Report: CYTOPATHOLOGY REPORT [facility] Reports generated via electronic interface contain yesenia ginal data; SERVICES however they are lacking the format of the original re port. Caution should be taken when reading/interpreting unfo rmatted reports. Name: ? DRISS THURSTON ? Accession #: ? [id number] : ? 1990 (Age: 28) ??F ?Collect Date: ? 2018 Location: ? [facility] ? Receive Date : ? 05/30/2018 Provider: ?HUSEYIN CHANG TRANSITIONAL CARE NURSE Copy to: ?USHA OLSON SUPERVISOR FARM EQUIPMENT MAINTENANCE ? Specimen/Source: ? Pap Test, Cervix, ThinPrep Imaging System with manual evaluation Last Menstrual Period: ? 05/16/18 Hormonal/Contraceptive Status: ? Yes: PARAGARD ? SPECIMEN ADEQUACY ? Satisfactory for Evaluation - transformation zone component present GENERAL CATEGORIZATION ? Negative for Intraepithelial Lesion or Malignan cy INTERPRETATION ? Reactive cellular jorje nges associated with inflammation present (includes repair). Bacteria present morphologically consistent with Actin omyces species. ? Document reviewed and electronically signed by: ? JUANY LEWIS MD ? Report Date: ??06/06/2018 10:50 End of Report Specimen Performing Organization Address City/State/ZIP Code Phon e Number [facility] [address] [place] [address] SERVICES documented in this encounter Visit Diagnoses Not on filedocumented in this encounter Care Teams Science Faculty Member Relationship Specialty Start Date End Date Unknown, Provider, PCP - General 07/17/13 documented as of this encounter
--- NOTE | 2022-03-03 11:45 | DI.US_ITS ---
Exam(s) US SOFT TISSUE EXTREMITY EXAM: US SOFT TISSUE EXTREMITY CLINICAL HISTORY: LT WRIST VOLAR MASS, R22.32, ? GANGLION CYST. TECHNIQUE: Ultrasound was performed using standard protocol. COMPARISON: No exams were available for comparison FINDINGS: Sonographic assessment utilizing grayscale and color Doppler imaging was performed and targeted to th e area of clinical concern. There is a complex cystic lesion on the volar aspect of the wrist. It measures 0.4 x 0.2 x 0.3 cm. There does appear to be of communication with an underlying joint. This may represent a ganglion cys t. An MRI of the wrist should be considered for further evaluation. IMPRESSION: DATA REPOSITORY:
== END ==
PROVIDERS: PCP Nurse Practitioner Family; Visit Provider Orthopaedic Surgery
DX: R22.32 Localized swelling, mass and lump, left upper limb (principal)
CPT/HCPCS: 76881

== ENCOUNTER 2022-06-19 14:05 | Outpatient (REF) | payer MEDICAID, SELFPAY ==
--- NOTE | 2022-06-19 13:15 | PAPFT_PTH ---
PATIENT: Driss Campa LOC: [facility] U#:[id number] AGE/SX: 32/F ROOM: RE06/19/[address]: Lilliam Salas NP : 1990 BED: DIS: 06/19/2022 SPEC #: [id number] RECD: 06/19/22 17:42 STATUS: INEZ REQ #: [id number] ANIL: 06/19/22 13:[address]: Josue MELTON,Lilliam DEPT: [facility] Cytology RECD BY: Moon Waite ENTERED: 06/19/22 17:42 SP TYPE: PAPFT OTHR DR: Lisbeth Kamara APRN Tissues: 1 - CX/ENDOCX FOR PAP SMEARS Procedures: PAP THIN PREP/[facility] Screening HPV DNA PROBE Comments: [id number] (CHLAMYDIA/GC)
[2022-06-20 14:08] LABS: Chlamydia Result Negative (Negative); GC Result Negative (Negative)
== END 2022-06-19 14:06 | disposition home or self-care (01) ==
LOC: LBN 14:05
PROVIDERS: PCP Nurse Practitioner Family; Visit Provider Nurse Practitioner Women's Health
DX: Z11.3 Encounter for screening for infections with a predominantly sexual mode of transmission (principal); Z12.4 Encounter for screening for malignant neoplasm of cervix; Z87.42 Personal history of other diseases of the female genital tract; R87.612 Low grade squamous intraepithelial lesion on cytologic smear of cervix (LGSIL); Z11.51 Encounter for screening for human papillomavirus (HPV)
CPT/HCPCS: 87491; 87591; 88142; 87624

== ENCOUNTER 2022-07-17 02:53 | Outpatient (CLI) | payer MEDICAID, SELFPAY ==
[2022-07-17 10:24] LABS: Hemoglobin A1C 5.4 % (<5.7)
[2022-07-17 10:26] LABS: Calculated LDL 162 mg/dL (<100); Cholesterol 250 mg/dL (<200); HDL Cholesterol 73 mg/dL (40-60); Triglyceride 79 mg/dL (<150)
[2022-07-25 13:15] LABS: Index Value 1.27 (0.00-0.79); Mumps Ab, IgG Negative
[2022-07-25 13:37] LABS: Mumps Ab, IgM Positive (Negative)
== END 2022-07-17 02:54 | disposition home or self-care (01) ==
LOC: LBO 02:53
PROVIDERS: PCP Nurse Practitioner Family; Referring Provider Nurse Practitioner Family; Visit Provider Nurse Practitioner Family
DX: E78.5 Hyperlipidemia, unspecified (principal); Z13.1 Encounter for screening for diabetes mellitus; Z86.32 Personal history of gestational diabetes; Z78.9 Other specified health status
CPT/HCPCS: 36415; 80061; 83735; 86735; 83036

== ENCOUNTER 2022-07-21 09:51 | Outpatient (REF) | payer MEDICAID, SELFPAY ==
--- NOTE | 2022-07-21 09:00 | ENDO_PTH ---
PATIENT: Driss Campa LOC: [facility] U#:[id number] AGE/SX: 32/F ROOM: RE07/21/[address]: Kerrie Perez : 1990 BED: DIS: 07/21/2022 SPEC #: [id number] RECD: 07/21/22 12:47 STATUS: INEZ REQ #: [id number] ANIL: 07/21/22 09:[address]: So Dean DEPT: Surgical Specimen RECD BY: Moon Waite ENTERED: 07/21/22 12:48 SP TYPE: Endo OTHR DR: Lisbeth Kamara, JULISSA Tissues: 1 - ENDOCERVICAL BX/CURRETTE Procedures: GROSS AND MICRO LEVEL 4 Comments: [id number] @ Ordering doctor for SL4 edited from ASHLEY to SHANE @ by [email or web address] at 07/25/22 1504 @ Submitting doctor edited from ASHLEY to SHANE @ by [email or web address] at 07/25/22 1896
[2022-07-21 10:28] LABS: Abs Immature Grans 0.02 10^3/uL (0.0-0.06); Absolute Basophil Count 0.04 10^3/uL (0.0-0.2); Absolute Eosinophil Count 0.09 10^3/uL (0.0-0.7); Absolute Lymphocyte Count 2.22 10^3/uL (1.2-3.4); Absolute Neutrophil Count 3.67 10^3/uL (1.2-6.7); Basophils % 0.6; Eosinophils % 1.4; HCT 36.1 % (36.0-46.0); HGB 12.1 g/dL (11.2-15.7); Immature Grans % 0.3; Lymphocytes % 33.9; MCH 30.1 pg (27.0-33.0); MCHC 33.5 % (32.0-36.0); MCV 90 fL (80-95); MPV 10.2 fL (8.0-11.0); Monocytes % 7.6; Neutrophils % 56.2; Platelet Count 264 10^3/uL (130-400); RBC 4.02 10^6/uL (3.93-5.22); RDW 13.7 % (11.7-14.6); RDW-SD 45.3 fL; WBC 6.54 10^3/uL (4.4-10.8)
[2022-07-21 11:04] LABS: Ferritin 8 ng/mL (8-252)
[2022-07-24 13:41] LABS: ANA Interpretation Negative (Negative)
== END 2022-07-21 09:52 | disposition home or self-care (01) ==
LOC: LBN 09:51
PROVIDERS: PCP Nurse Practitioner Family; Visit Provider Surgery
DX: N87.1 Moderate cervical dysplasia (principal); R87.612 Low grade squamous intraepithelial lesion on cytologic smear of cervix (LGSIL); R87.810 Cervical high risk human papillomavirus (HPV) DNA test positive; K62.5 Hemorrhage of anus and rectum; K60.1 Chronic anal fissure; R79.89 Other specified abnormal findings of blood chemistry; Z83.79 Family history of other diseases of the digestive system
CPT/HCPCS: 88305; 82728; 85025; 86038

== ENCOUNTER 2022-12-15 01:34 | Outpatient (CLI) | payer MEDICAID, SELFPAY ==
[2022-12-15 15:58] LABS: Panorama Kit Sent via Fed Ex
[2022-12-15 16:01] LABS: Abs Immature Grans 0.05 10^3/uL (0.0-0.06); Absolute Basophil Count 0.03 10^3/uL (0.0-0.2); Absolute Eosinophil Count 0.07 10^3/uL (0.0-0.7); Absolute Lymphocyte Count 2.58 10^3/uL (1.2-3.4); Absolute Monocyte Count 0.54 10^3/uL (0.1-0.8); Absolute Neutrophil Count 7.01 10^3/uL (1.2-6.7); Basophils % 0.3; Eosinophils % 0.7; HCT 35.2 % (36.0-46.0); HGB 12.5 g/dL (11.2-15.7); Immature Grans % 0.5; Lymphocytes % 25.1; MCH 32.8 pg (27.0-33.0); MCHC 35.5 % (32.0-36.0); MCV 92 fL (80-95); MPV 9.8 fL (8.0-11.0); Monocytes % 5.3; Neutrophils % 68.1; Platelet Count 252 10^3/uL (130-400); RBC 3.81 10^6/uL (3.93-5.22); RDW 12.9 % (11.7-14.6); RDW-SD 43.8 fL; WBC 10.28 10^3/uL (4.4-10.8)
[2022-12-17 10:02] LABS: HIV-1/2 Ag & Ab Screen Negative (Negative)
[2022-12-18 10:39] LABS: Varicella IgG Antibody Negative (See Note)
[2022-12-18 10:43] LABS: Rubella IgG Ab (UVM) Positive (See Note)
[2022-12-18 15:18] LABS: Hepatitis C Ab w Rflx HCV PCR Negative (Negative)
[2022-12-18 15:46] LABS: Hepatitis B Surface Ag Negative (Negative)
[2022-12-19 18:38] LABS: Syphilis IgG w/Reflex Nonreactive (Nonreactive)
== END 2022-12-15 01:35 | disposition home or self-care (01) ==
LOC: LBO 01:34
PROVIDERS: PCP Nurse Practitioner Family; Visit Provider Advanced Practice Midwife
DX: Z34.91 Encounter for supervision of normal pregnancy, unspecified, first trimester (principal); Z3A.12 12 weeks gestation of pregnancy
CPT/HCPCS: 36415; 86787; 86803; 86850; 86900; 86901; 87340; 87389; 85025; 86762; 86780

== ENCOUNTER 2022-12-15 15:43 | Outpatient (REF) | payer MEDICAID, SELFPAY ==
[2022-12-15 16:57] LABS: *AMPHETAMINES SCREEN URINE Negative (Negative); *BARBITURATES SCREEN URINE Negative (Negative); *BENZODIAZEPINES SCREEN URINE Negative (Negative); Cannabinoids THC Negative (Negative); Cocaine Screen,Urine Negative (Negative); METHADONE URINE SCREEN Negative (Negative); OPIATES URINE SCREEN Negative (Negative)
[2022-12-15 17:01] LABS: Tricyclic Antidepressants Negative (Negative)
[2022-12-22 14:16] LABS: Buprenorphine Negative ng/mL (Cutoff: 5.0); Norbuprenorphine Negative ng/mL (Cutoff: 2.5)
== END 2022-12-15 15:44 | disposition home or self-care (01) ==
LOC: LBN 15:43
PROVIDERS: PCP Nurse Practitioner Family; Visit Provider Advanced Practice Midwife
DX: Z34.91 Encounter for supervision of normal pregnancy, unspecified, first trimester (principal); Z3A.12 12 weeks gestation of pregnancy
CPT/HCPCS: 80307; 80348; 87086

== ENCOUNTER 2023-01-10 14:27 | Emergency (ER) | payer MEDICAID, SELFPAY ==
[2023-01-10 15:04] VITALS: BP 103/58; PULSE 85; RESP 19; TEMP 37; O2SAT 99
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
[2023-01-10] MEDS: ACETAMINOPHEN 1,000 MG/100 ML BTL 400 MG IVPB (15:56)
[2023-01-10] MEDS: Dexamethasone 10 MG/ML VIAL IVP (15:57)
[2023-01-10] MEDS: Normal Saline 1,000 ML 1000 ML IV (15:57)
[2023-01-10] MEDS: Ondansetron 4 MG/2 ML VIAL IVP (15:58)
[2023-01-10 16:11] LABS: Abs Immature Grans 0.08 10^3/uL (0.0-0.06); Absolute Basophil Count 0.03 10^3/uL (0.0-0.2); Absolute Eosinophil Count 0.03 10^3/uL (0.0-0.7); Absolute Lymphocyte Count 1.84 10^3/uL (1.2-3.4); Absolute Monocyte Count 0.59 10^3/uL (0.1-0.8); Basophils % 0.3; Eosinophils % 0.3; HCT 35.8 % (36.0-46.0); HGB 12.5 g/dL (11.2-15.7); Immature Grans % 0.7; Lymphocytes % 15.9; MCH 32.4 pg (27.0-33.0); MCHC 34.9 % (32.0-36.0); MCV 93 fL (80-95); MPV 9.7 fL (8.0-11.0); Monocytes % 5.1; Neutrophils % 77.7; Platelet Count 238 10^3/uL (130-400); RBC 3.86 10^6/uL (3.93-5.22); RDW 12.9 % (11.7-14.6); RDW-SD 43.8 fL; WBC 11.55 10^3/uL (4.4-10.8)
[2023-01-10 16:22] LABS: Absolute Neutrophil Count 8.97 10^3/uL (1.2-6.7)
[2023-01-10 16:47] VITALS: BP 99/67; PULSE 78; RESP 15; TEMP 36.9; O2SAT 97
[2023-01-10 16:47] LABS: ALT 23 U/L (14-59); AST 15 U/L (15-37); Albumin 3.1 g/dL (3.4-5.0); Alkaline Phosphatase 45 U/L (46-116); BUN 8 mg/dL (7-18); Bilirubin, Total 0.3 mg/dL (0.2-1.0); CREATININE 0.6 mg/dL (0.55-1.02); Calcium 9.7 mg/dL (8.5-10.1); Chloride 102 mmol/L (98-107); Estimated GFR 123.76 (mL/min/1.73m2); Glucose 82 mg/dL (74-106); Potassium 3.9 mmol/L (3.5-5.1); Sodium 136 mmol/L (136-145); Total Protein 6.8 g/dL (6.4-8.2)
== END 2023-01-10 16:49 | disposition home or self-care (01) ==
PROVIDERS: Emergency Provider Emergency Medicine; PCP Nurse Practitioner Family
DX: O26.892 Other specified pregnancy related conditions, second trimester (principal); G43.909 Migraine, unspecified, not intractable, without status migrainosus; R11.2 Nausea with vomiting, unspecified; Z3A.16 16 weeks gestation of pregnancy
CPT/HCPCS: 80053; 96365; 99283; 85025; J0131; J1100; J2405

== ENCOUNTER 2023-01-12 11:36 | Outpatient (REF) | payer MEDICAID, SELFPAY ==
[2023-01-13 15:06] LABS: Chlamydia Result Negative (Negative); GC Result Negative (Negative)
== END 2023-01-12 11:37 | disposition home or self-care (01) ==
LOC: LBN 11:36
PROVIDERS: PCP Nurse Practitioner Family; Visit Provider Advanced Practice Midwife
DX: Z34.92 Encounter for supervision of normal pregnancy, unspecified, second trimester (principal); Z3A.16 16 weeks gestation of pregnancy; Z11.3 Encounter for screening for infections with a predominantly sexual mode of transmission
CPT/HCPCS: 87491; 87591

== ENCOUNTER → 2023-02-09 01:15 | Outpatient (CLI) | payer MEDICAID, SELFPAY ==
--- NOTE | 2023-02-09 07:30 | DI.US_ITS ---
Exam(s) US OB 2-3 TRIMESTER EXAM: US OB 2-3 TRIMESTER CLINICAL HISTORY: anatomy survey,z34.90. TECHNIQUE: Transabdominal obstetrical ultrasound performed. COMPARISON: US POCUS EXAM from 11/10/2022 FINDINGS: Number of fetuses: One. position: Variable Placental grade: 1 Placental location: Anterior. No evidence of previa. Cervix normal. BIOMETRIC DATA: BPD: 48mm = 20+ 4 weeks HC: 185mm = 20+ 6 weeks AC: 168mm = 21+5 weeks FL: 36mm = 21+ 4 weeks Cisterna Magna: 5 mm Cerebellum: 1.8 cm EFW: 515 grms above 97% Composite Age: 21+1 weeks EDC by US: 21 June 2023 Heart Rate: 141BPM Amniotic fluid : Amount of fluid is within normal limits. ANATOMICAL SURVEY: Four-chambered heart: Unremarkable. LVOT: Unremarkable. RVOT: Unremarkable. Left-sided stomach: Unremarkable. urinary bladder: Unremarkable. Bilateral kidneys: Unremarkable. Three-vessel cord: Unremarkable. Cord insertion: Unremarkable. Posterior fossa:Unremarkable. ventricles: Unremarkable. nose: Unremarkable. lips: Unremarkable. palate: Unremarkable. spine: Unremarkable. Two arms and two legs: Unremarkable. IMPRESSION: 1. Single live intrauterine gestation with composite age 21+1 weeks.. 2. Normal anatomic survey. DATA REPOSITORY:
== END ==
PROVIDERS: PCP Nurse Practitioner Family; Visit Provider Advanced Practice Midwife
DX: Z34.92 Encounter for supervision of normal pregnancy, unspecified, second trimester (principal)
CPT/HCPCS: 76805

== ENCOUNTER 2023-04-06 03:05 | Outpatient (CLI) | payer MEDICAID, SELFPAY ==
[2023-04-06 10:49] LABS: HCT 31.6 % (36.0-46.0); HGB 10.8 g/dL (11.2-15.7); MCHC 34.2 % (32.0-36.0); MCV 94 fL (80-95); MPV 9.8 fL (8.0-11.0); Platelet Count 284 10^3/uL (130-400); RBC 3.37 10^6/uL (3.93-5.22); RDW 12.7 % (11.7-14.6); RDW-SD 43.4 fL; WBC 10.75 10^3/uL (4.4-10.8)
[2023-04-06 11:04] LABS: Glucose,1 Hr (Glucola) 128 mg/dL (80-140)
== END 2023-04-06 03:06 | disposition home or self-care (01) ==
LOC: LBO 03:05
PROVIDERS: Advanced Practice Midwife; PCP Nurse Practitioner Family; Visit Provider Advanced Practice Midwife
DX: Z34.93 Encounter for supervision of normal pregnancy, unspecified, third trimester (principal)
CPT/HCPCS: 36415; 82950; 85027

== ENCOUNTER 2023-06-01 13:36 | Outpatient (CLI) | payer MEDICAID, SELFPAY ==
[2023-06-01 13:31] LABS: HCT 33.6 % (36.0-46.0); HGB 11.2 g/dL (11.2-15.7); MCH 30.4 pg (27.0-33.0); MCHC 33.3 % (32.0-36.0); MCV 91 fL (80-95); Platelet Count 231 10^3/uL (130-400); RBC 3.68 10^6/uL (3.93-5.22); RDW 13.3 % (11.7-14.6); RDW-SD 44.6 fL; WBC 9.59 10^3/uL (4.4-10.8)
--- OUTSIDE RECORDS SUMMARY | 2023-06-01 13:40 | XMS_ITS | Continuity of Care Document ---
Author Name Unknown Organization [facility] Address [address] [place] [id number] Care Team Providers Care Community Development Officer Name Role Phone USHA JIMÉNEZ Primary Care Physician Encounter [facility] FIN NBR [id number] Date(s): 05/05/22 - 11/24/[address] [address] [place] Encounter Diagnosis Carpal tunnel syndrome, bilateral upper limbs(Discharge Diagnosis) - 05/05/22 Carpal tunnel syndrome, bilateral upper limbs(Final) - Discharge Disposition: Home-No Follow Up Attending Physician: Tiki Agarwal Referring Physician: AMINA FAIR Functional Status 05/05/22 Prior ADL Status Independent Prior Instrumental ADL Level Independent Prior Cognitive-Communication Skills Ind ependent 05/05/22 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
== END 2023-06-01 13:37 | disposition home or self-care (01) ==
LOC: LBO 13:37
PROVIDERS: PCP Nurse Practitioner Family; Referring Provider Advanced Practice Midwife; Visit Provider Advanced Practice Midwife
DX: Z34.93 Encounter for supervision of normal pregnancy, unspecified, third trimester (principal)
CPT/HCPCS: 36415; 85027

== ENCOUNTER 2023-06-01 14:00 | Outpatient (REF) | payer MEDICAID, SELFPAY | END 2023-06-01 14:01 | disposition home or self-care (01) | LOC: LBN 14:00 | PROVIDERS: PCP Nurse Practitioner Family; Visit Provider Advanced Practice Midwife | DX: Z34.93 Encounter for supervision of normal pregnancy, unspecified, third trimester (principal); Z36.85 Encounter for antenatal screening for Streptococcus B; Z3A.36 36 weeks gestation of pregnancy | CPT/HCPCS: 87081 ==

== ENCOUNTER 2023-06-04 02:35 | Outpatient (CLI) | payer MEDICAID, SELFPAY ==
[2023-06-04 03:11] VITALS: BP 112/71; PULSE 74; TEMP 36.7
[2023-06-04 03:16] VITALS: BP 112/71; PULSE 74; TEMP 36.7
[2023-06-04] MEDS: Lactated Ringers 500 ML IV (03:46)
[2023-06-04] MEDS: Normal Saline Flush 10 ML SYR IVP (03:47)
[2023-06-04 03:58] VITALS: BP 113/57; PULSE 67
[2023-06-04 04:00] LABS: COMMENT (LAB VIEW ONLY) 55.81 mg/dL; PROTEIN 23.5 mg/dL; Prot/Crea Ur Ratio 0.42
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
[2023-06-04] MEDS: Ondansetron 4 MG/2 ML VIAL IVP (04:20)
[2023-06-04 04:33] LABS: Abs Immature Grans 0.14 10^3/uL (0.0-0.06); Absolute Basophil Count 0.04 10^3/uL (0.0-0.2); Absolute Lymphocyte Count 2.27 10^3/uL (1.2-3.4); Absolute Monocyte Count 0.72 10^3/uL (0.1-0.8); Absolute Neutrophil Count 6.83 10^3/uL (1.2-6.7); Basophils % 0.4; HCT 32.6 % (36.0-46.0); Immature Grans % 1.4; Lymphocytes % 22.5; MCHC 33.7 % (32.0-36.0); MCV 92 fL (80-95); MPV 10.4 fL (8.0-11.0); Monocytes % 7.1; Neutrophils % 67.6; Platelet Count 202 10^3/uL (130-400); RBC 3.55 10^6/uL (3.93-5.22); RDW 13.2 % (11.7-14.6); RDW-SD 45.1 fL
[2023-06-04] MEDS: Butalbital/Acetaminophen/Caffeine 50/325/40 TAB PO (04:46)
[2023-06-04] MEDS: Magnesium Oxide 400 MG TAB PO (04:47)
[2023-06-04 04:48] LABS: ALT 13 U/L (14-59); AST 13 U/L (15-37); Albumin 2.4 g/dL (3.4-5.0); Alkaline Phosphatase 95 U/L (46-116); Anion Gap 7.2 mmol/L (3-11); BUN 8 mg/dL (7-18); Bilirubin, Total 0.2 mg/dL (0.2-1.0); CO2 24.8 mmol/L (21.0-32.0); CREATININE 0.7 mg/dL (0.55-1.02); Calcium 8.9 mg/dL (8.5-10.1); Chloride 102 mmol/L (98-107); Estimated GFR 118.51 (mL/min/1.73m2); Glucose 93 mg/dL (74-106); Sodium 134 mmol/L (136-145); Total Protein 6.6 g/dL (6.4-8.2); Uric Acid 3.9 mg/dL (2.6-6.0)
[2023-06-04] MEDS: Lactated Ringers 1,000 ML 125 ML IV ×2 (04:50→08:11)
[2023-06-04 07:52] VITALS: BP 106/59; PULSE 68
[2023-06-04] MEDS: Magnesium Gluconate 500 MG TAB PO (08:48)
[2023-06-04 09:23] LABS: COMMENT (LAB VIEW ONLY) 29.05 mg/dL; PROTEIN 6.8 mg/dL; Prot/Crea Ur Ratio 0.23
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
== END 2023-06-04 09:40 | disposition home or self-care (01) ==
LOC: BCD 02:40 → OBS 03:03
PROVIDERS: PCP Nurse Practitioner Family; Visit Provider Advanced Practice Midwife
DX: G43.109 Migraine with aura, not intractable, without status migrainosus (principal); O99.891 Other specified diseases and conditions complicating pregnancy; Z3A.36 36 weeks gestation of pregnancy
CPT/HCPCS: 36415; 80053; 96368; 59025; 82565; 84156; 84550; 85025; J2405

== ENCOUNTER 2023-06-11 10:14 | Outpatient (CLI) | payer MEDICAID, SELFPAY ==
[2023-06-11 10:31] VITALS: BP 102/63; PULSE 81; TEMP 36.4
[2023-06-11 10:50] VITALS: BP 102/63; PULSE 81
--- NOTE | 2023-06-11 11:05 | W.OBNST ---
Date of service: 06/11/23 Time of Service: 11:05 NST Evaluation Reason for NST Reasons for Nonstress Test: DECREASED MOVEMENT Gestational Age Gestational Age in Weeks and Days: 37 Weeks and 3Days Test and Monitor Explained Test/Monitor Explained: Test Explained, Monitor Explained and Patient Verbalized Understanding Vital Signs Blood Pressure: 102/63 Pulse: 81 Temperature: 97.5 F NST Information Date on Monitor: 06/11/23 Time on Monitor: 10:34 NST Interventions: PO Hydration NST Evaluation Patient States Movement: Present FHR Baseline: 145 Variability: Moderate 6-25 bpm Accelerations: 15x15 Decelerations: None NST Results: Reactive Note Ultrasound Done: N/A. NST Note Note: NST normal and reassuring. To keep next appointment as scheduled. AUREA NST Reviewed and Verified by: Yancy Mojica
[2023-06-11 11:06] VITALS: BP 102/63; PULSE 81; TEMP 36.4
== END 2023-06-11 11:04 | disposition home or self-care (01) ==
LOC: BCD 10:15 → OBS 10:30
PROVIDERS: PCP Nurse Practitioner Family; Visit Provider Advanced Practice Midwife
DX: O36.8131 Decreased fetal movements, third trimester, fetus 1 (principal); Z3A.37 37 weeks gestation of pregnancy
CPT/HCPCS: 59025

== ENCOUNTER 2023-06-25 22:55 | Inpatient (IN) | payer MEDICAID, SELFPAY ==
[2023-06-25 23:00] VITALS: BP 130/72; PULSE 94; RESP 18; TEMP 36.6
[2023-06-25 23:03] VITALS: BP 130/72; PULSE 94
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
[2023-06-25 23:58] VITALS: BP 98/53; PULSE 80
[2023-06-26] VITALS (34 sets, daily range): BP systolic 80–141; BP diastolic 42–79; PULSE 63–107; RESP 16–18; TEMP 36.6–36.7; O2SAT 93–100; BMI 28.3
[2023-06-26 00:35] LABS: Abs Immature Grans 0.14 10^3/uL (0.0-0.06); Absolute Basophil Count 0.04 10^3/uL (0.0-0.2); Absolute Eosinophil Count 0.07 10^3/uL (0.0-0.7); Absolute Lymphocyte Count 2.33 10^3/uL (1.2-3.4); Absolute Monocyte Count 0.85 10^3/uL (0.1-0.8); Absolute Neutrophil Count 8.78 10^3/uL (1.2-6.7); Basophils % 0.3; Eosinophils % 0.6; HCT 35.5 % (36.0-46.0); HGB 11.9 g/dL (11.2-15.7); Immature Grans % 1.1; Lymphocytes % 19.1; MCH 29.3 pg (27.0-33.0); MCHC 33.5 % (32.0-36.0); MCV 87 fL (80-95); MPV 10.4 fL (8.0-11.0); Neutrophils % 71.9; Platelet Count 243 10^3/uL (130-400); RBC 4.06 10^6/uL (3.93-5.22); RDW 13.2 % (11.7-14.6); RDW-SD 42.5 fL; WBC 12.21 10^3/uL (4.4-10.8)
--- NOTE | 2023-06-26 01:29 | W.PM.OBNL1 ---
Date of service: 06/26/23 Time of Service: 01:29 Informed Consent Informed Consent: Regional Anesthesia Pelvic Exam Dilation: 7 Effacement (%): 80 station: -2 Cervix Position: posterior Consistency: soft Vaginal Exam Presentation: Vertex Contractions Monitor Mode: External Contraction Frequency(min): every 2-3 Contraction Duration(sec): strong Intensity: Moderate/Strong Fetus A Monitor: External (US) Heart Rate Baseline: 135 Variability: Moderate (6-25 BPM) Categories: Category I FHR Rhythm: Regular Accelerations: 15 X 15 Decelerations: None Amniotic Membrane Status: Intact Assessment and Plan Assessment and plan (1) Spontaneous onset of labor: Status: Acute Assessment and plan: AVIATION ELECTRICAL TECHNICIAN paged for epidural. Will prepare for epidural. Continued comfort measures. vertex presentation confirmed with POCUS. Anticipate . Objective Abnormal lab results 06/26/23 Range/Units 00:24 WBC 12.21 H (4.4-10.8) 10^3/uL Hct 35.5 L (36.0-46.0) % Absolute Neutrophils 8.78 H (1.2-6.7) 10^3/uL Absolute Monocytes 0.85 H (0.1-0.8) 10^3/uL Temp Pulse Resp BP 97.9 F 76 18 98/53 L 06/25/23 23:00 06/26/23 00:21 06/25/23 23:00 06/26/23 00:21 Laboratory Results WBC 12.21 10^3/uL (4.4-10.8) H 06/26/23 00:24 RBC 4.06 10^6/uL (3.93-5.22) 06/26/23 00:24 Hgb 11.9 g/dL (11.2-15.7) 06/26/23 00:24 Hct 35.5 % (36.0-46.0) L 06/26/23 00:24 MCV 87 fL (80-95) 06/26/23 00:24 MCH 29.3 pg (27.0-33.0) 06/26/23 00:24 MCHC 33.5 % (32.0-36.0) 06/26/23 00:24 RDW 13.2 % (11.7-14.6) 06/26/23 00:24 Plt Count 243 10^3/uL (130-400) 06/26/23 00:24 MPV 10.4 fL (8.0-11.0) 06/26/23 00:24 Immature Gran % 1.1 06/26/23 00:24 Neutrophils % 71.9 06/26/23 00:24 Lymphocytes % 19.1 06/26/23 00:24 Monocytes % 7.0 06/26/23 00:24 Eosinophils % 0.6 06/26/23 00:24 Basophils % 0.3 06/26/23 00:24 Nucleated RBC % 0.0 % (0.0-0.3) 06/26/23 00:24 Absolute Neutrophils 8.78 10^3/uL (1.2-6.7) H 06/26/23 00:24 Absolute Lymphocytes 2.33 10^3/uL (1.2-3.4) 06/26/23 00:24 Absolute Monocytes 0.85 10^3/uL (0.1-0.8) H 06/26/23 00:24 Absolute Eosinophils 0.07 10^3/uL (0.0-0.7) 06/26/23 00:24 Absolute Basophils 0.04 10^3/uL (0.0-0.2) 06/26/23 00:24 Patient ABO/Rh A Positive 06/26/23 00:24 Antibody Screen NEGATIVE 06/26/23 00:24 Subjective Patient Reports: New Complaints Interval history since last seen: Driss reports stronger contractions. She has been using nitrous oxide for pain with fair effect. She vomited and an IV was started for hydration. She is experiencing back pain and she requests an epidural for pain relief. Results Hemoglobin/Hematocrit: Hgb 11.9 g/dL (11.2-15.7) 06/26/23 00:24 Hct 35.5 % (36.0-46.0) L 06/26/23 00:24 Abnormal Lab Findings: Abnormal Labs 06/26/23 00:24 WBC 12.21 H Hct 35.5 L Absolute Neutrophils 8.78 H Absolute Monocytes 0.85 H
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
--- NOTE | 2023-06-26 02:19 | W.ANESPROC ---
Intrathecal Analgesia Date Performed: 06/26/23 Procedure Time: 02:04 Requesting Provider: Yancy Reynolds Procedure Location: Obstetrics Reason Performed: Labor Intrathecal Analgesia Standard Monitors Applied: Blood Pressure and SpO2 Patient Position: Sitting Timeout Performed: Yes Sedation Given (Indicate Dose Given): No Sedation given Patient Mental Status: Awake Sterility: Hand Hygiene, Surgical Cap, Surgical Mask, Sterile Gloves, Sterile Drape/Sheet and Chlorhexidine Placement Site: L3-L4 Interspace Spinal Needle Type: Modesta 25 Gauge Needle Length: 3.5 Inch Spinal Procedure: 1% Lidocaine to skin and subcutaneous tissue with 25G needle Paresthesia: None Spinal Local Anesthetic (Indicate Dose Given): Bupivacaine 0.25% PF (ml) Dose:: 1 mL Additives (Indicate Dose Given): Fentanyl PF Dose:: 20 mcg Ultrasound: Used to amina site Number of Attempts (See previous attempts in note section): 1 Procedure Tolerated: No Complications Procedure Outcome: Successful Procedure Comment: Requested for epidural, but prior to arrival water broke and started progressing more rapidly and is likely now at 9 cm (was at 7 cm ~ 20 minutes ago). In discussion with CNM and pt, intrathecal analgesia was decided to be performed instead of an epidural. Performed By: Augusto Maurice
--- NOTE | 2023-06-26 02:30 | W.PM.OBNL1 ---
Date of service: 06/26/23 Time of Service: 02:30 Informed Consent Informed Consent: Regional Anesthesia Pelvic Exam Dilation: 8 Effacement (%): 90 station: -1 Cervix Position: posterior Consistency: soft Vaginal Exam Presentation: Vertex Nitrazine: Positive Contractions Monitor Mode: External Contraction Frequency(min): every 3-4 Contraction Duration(sec): 60 Intensity: Strong Fetus A Monitor: External (US) Heart Rate Baseline: 140 Presentation: Vertex Variability: Moderate (6-25 BPM) Categories: Category I FHR Rhythm: Regular Accelerations: 15 X 15 Decelerations: Prolonged (associated with low blood pressure after epidural) Recurrence: Episodic Amniotic Membrane Status: Ruptured (SROM) Rupture Method: Spontaneous Amniotic Fluid: Clear Amount: mod Assessment Note: prolonged decelleration occurred shortly after epidural. IV fluid bolus LR infused and Driss was repositioned on her left side. Oxygen administered via mask. Augusto Drummond administered ephedrine and baseline returned to 140s. Assessment and Plan Assessment and plan (1) Spontaneous onset of labor: Status: Acute Assessment and plan: Continue to assess labor progress and heart rate pattern. Driss and Brwon were encourage to rest. Will reassess for cervical change in 2 hours or when appropriate. Objective Abnormal lab results 06/26/23 Range/Units 00:24 WBC 12.21 H (4.4-10.8) 10^3/uL Hct 35.5 L (36.0-46.0) % Absolute Neutrophils 8.78 H (1.2-6.7) 10^3/uL Absolute Monocytes 0.85 H (0.1-0.8) 10^3/uL Temp Pulse Resp BP Pulse Ox 97.9 F 72 18 80/42 L 98 06/25/23 23:00 06/26/23 02:28 06/25/23 23:00 06/26/23 02:27 06/26/23 02:28 Laboratory Results WBC 12.21 10^3/uL (4.4-10.8) H 06/26/23 00:24 RBC 4.06 10^6/uL (3.93-5.22) 06/26/23 00:24 Hgb 11.9 g/dL (11.2-15.7) 06/26/23 00:24 Hct 35.5 % (36.0-46.0) L 06/26/23 00:24 MCV 87 fL (80-95) 06/26/23 00:24 MCH 29.3 pg (27.0-33.0) 06/26/23 00:24 MCHC 33.5 % (32.0-36.0) 06/26/23 00:24 RDW 13.2 % (11.7-14.6) 06/26/23 00:24 Plt Count 243 10^3/uL (130-400) 06/26/23 00:24 MPV 10.4 fL (8.0-11.0) 06/26/23 00:24 Immature Gran % 1.1 06/26/23 00:24 Neutrophils % 71.9 06/26/23 00:24 Lymphocytes % 19.1 06/26/23 00:24 Monocytes % 7.0 06/26/23 00:24 Eosinophils % 0.6 06/26/23 00:24 Basophils % 0.3 06/26/23 00:24 Nucleated RBC % 0.0 % (0.0-0.3) 06/26/23 00:24 Absolute Neutrophils 8.78 10^3/uL (1.2-6.7) H 06/26/23 00:24 Absolute Lymphocytes 2.33 10^3/uL (1.2-3.4) 06/26/23 00:24 Absolute Monocytes 0.85 10^3/uL (0.1-0.8) H 06/26/23 00:24 Absolute Eosinophils 0.07 10^3/uL (0.0-0.7) 06/26/23 00:24 Absolute Basophils 0.04 10^3/uL (0.0-0.2) 06/26/23 00:24 Patient ABO/Rh A Positive 06/26/23 00:24 Antibody Screen NEGATIVE 06/26/23 00:24 Subjective Patient Reports: No new Complaints Interval history since last seen: AROM occurred on the toilet for a large amount of clear fluid. Driss began experiencing an urge to bear down. An intrathecal was placed by Augusto Drummond CRNA with excellent effect. Results Hemoglobin/Hematocrit: Hgb 11.9 g/dL (11.2-15.7) 06/26/23 00:24 Hct 35.5 % (36.0-46.0) L 06/26/23 00:24 Abnormal Lab Findings: Abnormal Labs 06/26/23 00:24 WBC 12.21 H Hct 35.5 L Absolute Neutrophils 8.78 H Absolute Monocytes 0.85 H
[2023-06-26] MEDS: Ibuprofen 600 MG TAB PO ×4 (05:48→23:30)
[2023-06-26] MEDS: Acetaminophen 325 MG TAB (05:48)
[2023-06-26] MEDS: Acetaminophen 325 MG TAB 650 MG PO ×4 (05:48→19:28)
--- NOTE | 2023-06-26 06:19 | W.OBDELIVERY ---
Date of service: 06/26/23 Time of Service: 06:46 OB Labor/ Delivery Information Baby A Delivery Delivery Method: Spontaneaous Presentation: Vertex Vertex Position: Right Occipital Anterior Cord Description-Baby A: 3 Vessels Cord Description Comment: short cord Amniotic Fluid: Clear Delivery Outcome: Liveborn Infant Transferred: Remains with Mother Note: FHTs 130-140 during first stage of labor. Driss began feeling an urge to push at 0330 and began bearing down. She was examined and was 8 cms dilated. She rested and then began pushing in various positions and shortly after was noted to have an anterior rim of cervix. FHTs 130s in second stage with recurrent variable decelerations associated with strong pushing. Dr Dean was paged to attend the and Dr Noyola was also paged. Driss progressed to full dilation with manual reduction of the anterior cervix and she continued pushing. Driss was pushing on her hands and knees. There was slow descent of the vertex. The novi was reading intermittently with pushing and a doppler was also used to assess the heart rate. She continued having recurrent variable decelerations with pushing and she was placed in knee to chest. A scalp electrode was placed to better assess the heart tones. The heart rate returned to a baseline of 130-140. Dr Dean was present in the delivery room. There was a spontaneous delivery of the baby girl's head delivered in MARKEL position. Shoulder dystocia was encountered and Driss was encouraged to push hard which she did do. Dr Dean delivered the shoulders with my assistance with gentle upward traction in the [id number] position. Baby was placed on mother's abdomen and dried and stimulated. Spontaneous cry. The cord was clamped and cut and the baby was transferred immediately to the warmer for assessment by Dr. Noyola. The placenta delivered spontaneously and appears to be intact with a three vessel cord. Pitocin 10 units IM was administered after delivery of the placenta as the IV had dislodged. The perineum was inspected and a first degree laceration was repaired using nitrous oxide. The baby did breastfeed. After delivery, Mother and baby and father of the baby were stable and bonding well in the delivery room and there were no complications. Providers Doctor: So Dean Nurse Glass Scullion: Yancy Reynolds Chip Separator: Augusto Maurice Director Of Strategic Initiatives: Donte Noyola Nurse: Betty Stanley Nurse: Carie Hernandez Labor/Delivery Information Number of Babies in Womb: 1 Steroids Given: None Reason Steroids Not Administered: N/A Group Beta Strep: Negative Antibiotics Administered: No Rubella Status: Immune Blood Type: A+ Varicella Immunity: Nonimmune Maternal Complications: None Shoulder Dystocia: No Stages of Labor Onset of Labor Date: 06/25/23 Onset of Labor Time: 13:00 Complete Dilatation Date: 06/26/23 Complete Dilatation Time: 01:30 Labor - Stage 1 Duration: 12 hours and 30 minutes ROM Baby A: 06/26/23 ROM Baby A: 01:36 ROM Total Time- Baby A: [id number] Delivery Date-Baby A: 06/26/23 Infant Delivery Time-Baby A: 05:02 Labor Stage 2 Duration: 3 hours and 32 minutes Placenta Delivery Date-Baby A: 06/26/23 Placenta Delivery Time-Baby A: 05:07 Labor-Stage 3 Duration: 5 minutes Total Length of Labor-Baby A: 16 hours and 2 minutes Placenta Cultured: No Placenta Status: Delivered Baby A Infant Gender: Female Gestational Status: Term (39-41.6 wks) Gestational Age in Weeks/Days: 39 Weeks and 4 Days Score-1 Minute Interval(Baby A) Heart Rate-1 minute: 100 BPM or Greater Respiratory Effort- 1 minute: Slow Respiration/Weak Cry Muscle Tone-1 minute: Minimal Flexion/Extension Reflex Response-1 minute: Minimal Response Color-1 minute: Pallor or Cyanosis Total Score-1 minute: 5 Score-5 Minute Interval(Baby A) Heart Rate- 5 minute: 100 BPM or Greater Respiratory Effort-5 minute: Spontaneous/Strong Cry Muscle Tone-5 minute: Active Movement Reflex Response-5 minute: Prompt Response Color-5 minute: Bluish Hands or Feet Total Score- 5 minute: 9 Interventions Repair of Laceration Type: Perineal, Laceration Extension: First Degree. Sponge Count Correct: No Sponges Placed in Vagina, Sharp Count Correct: Yes. Shoulder Dystocia Delivery Times Date of Delivery of Head: 06/26/23 Time of Delivery of the Head: 05:02 Head to Body Delivery Interval(minutes): 30 seconds Verify No Fundal Pressure Applied Fundal Pressure: No Pressure Applied Arm Under Sympisis Arm Under Symphisis: Left Note: The baby delivered to her cheeks in the MARKEL position. I encouraged Driss to push and gentle upward traction applied (in hands and knees position). The shoulder did not deliver. I moved to Driss's left side and Dr Dean delivered the baby with continued upward traction with my assistance and the shoulders delivered easily.
--- NOTE | 2023-06-26 12:53 | W.ANESPOSTOP ---
Postoperative Evaluation Date, Time and Location Date Performed: 06/26/23 Time Performed: 12:53 Patient Location: Obstetrics Vital Signs Most Recent Imported Vital Signs: Most Recent Vital Signs Temp Pulse Resp BP Pulse Ox 36.6 C 95 H 18 116/67 99 06/25/23 23:00 06/26/23 07:36 06/25/23 23:00 06/26/23 07:36 06/26/23 03:18 Pain Score Most Recent Pain Score: Most Recent Pain Score Pain Level 3 06/26/23 11:38 Assessment Mental Status: Awake (Alert & Oriented to Patient Baseline) Airway and Respiratory Function: Patent airway with normal (patient baseline) respiratory exam Cardiovascular Function: Hemodynamically Stable Hydration Status: Adequately Hydrated Nausea & Vomiting: No Nausea or Vomiting Pain: Pain is tolerable per patient Peripheral Nerve Block: Patient did not receive a nerve block Postoperative Comments:: Pt. up and changing baby when I entered. No bowel or bladder concerns. She does state she is having some numbness on her right lateral thigh but not impacting ambulation. However she also states this was present prior to IT or labor, guessing it was a compressed nerve. I advised her if this worsens to touch base with her OB provider or anesthesia to be evaluated further. I feel this is almost certainly from her previous complaint and not from the labor analgesia. She will discuss with OB if not resolved in the next few days.
[2023-06-26] MEDS: Dibucaine 1% 28 GM TUBE TP (17:41)
[2023-06-27 00:40] VITALS: BP 124/81; PULSE 90; RESP 18; TEMP 36.6
[2023-06-27] MEDS: Acetaminophen 325 MG TAB 650 MG PO (07:12)
[2023-06-27] MEDS: Ibuprofen 600 MG TAB PO (07:12)
[2023-06-27 07:15] VITALS: BP 108/71; PULSE 90; RESP 12; TEMP 36.5
--- NOTE | 2023-06-27 09:05 | OBPPV_ITS ---
Date of service: 06/27/23 Time of Service: 09:05 Assessment and Plan Assessment and plan (1) Term delivered: Status: Acute Assessment and plan: A: PPD#1, nml recovery Satisfied with experience P: MMR and Varicella vaccines prior to discharge Pt desires to go home today Written instructions reviewed and given to pt F/up @ 2 & 6 wks w/CNM 2nd Varicella @ 6 wks Condoms planned for BCM Subjective Subjective Patient comments: No complaints, Pain well controlled, Tolerating diet and Flatus present Patient's Mood: happy [place] baby status: Doing well, Nursing well, Rooming in and Strong Bonding Observed feeding status: Exclusively breast feeding Exam Physical Exam Vital signs: Temp Pulse Resp BP Pulse Ox 97.9 F 90 18 124/81 99 06/27/23 00:40 06/27/23 00:40 06/27/23 00:40 06/27/23 00:40 06/26/23 03:18 Vital Signs Reviewed: Yes Constitutional Constitutional: no acute distress, average body habitus and cooperative HEENT Exam HEENT Exam: Normal Neck Exam Neck Exam: Normal Breast Exam Bilateral: Breast Exam: Normal and Soft Nipple Exam: Normal and Uninjured Respiratory Exam Respiratory Exam: Normal Cardiovascular Exam Cardiovascular Exam: Normal Abdominal Exam Abdomen: Other (soft, nontender) Fundal Exam Fundus: Below Umbilicus and Firm Rectal Exam Rectal Exam: Normal Exam Perineum: Normal and Repair Intact Extremities Exam Extremity Exam: Normal, Full ROM and Warm to Touch Back/Spine/Pelvis Exam Back Exam: Normal Skin Exam Skin Exam: Normal Neurological Exam Neurological Exam: Normal Psychiatric Exam Psychiatric Exam: Normal
[2023-06-27] MEDS: Varicella Virus Vaccine (Live) 0.5 ML SC (09:25)
[2023-06-27] MEDS: Measles, Mumps, & Rubella Vaccine 0.5 ML VIAL SC (09:27)
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
--- NOTE | 2023-07-02 12:41 | W.POCUS ---
[facility] OB Exam DATE OF EXAM:: 06/26/23 TIME OF EXAM:: 01:29 PROVIDER THAT PERFORMED THE STUDY: Yancy Reynolds IS THIS A REPEAT EXAM DURING THIS ENCOUNTER: No Type of Exam: Pelvic OB Trans Abdominal REASON FOR EXAM: other indication: presentation Exam Complete. INCIDENTAL FINDINGS: vertex confirmed
== END 2023-06-27 11:50 | disposition home or self-care (01) | DRG 806 ==
PROVIDERS: Admitting Provider Advanced Practice Midwife; PCP Nurse Practitioner Family; Visit Provider Advanced Practice Midwife
DX: O99.344 Other mental disorders complicating childbirth (principal); O99.354 Diseases of the nervous system complicating childbirth; Z37.0 Single live birth; F41.9 Anxiety disorder, unspecified; O99.62 Diseases of the digestive system complicating childbirth; O99.02 Anemia complicating childbirth; D64.9 Anemia, unspecified; O69.3XX0 Labor and delivery complicated by short cord, not applicable or unspecified; O66.0 Obstructed labor due to shoulder dystocia; O70.0 First degree perineal laceration during delivery; Z3A.40 40 weeks gestation of pregnancy; R12 Heartburn; R00.0 Tachycardia, unspecified; R42 Dizziness and giddiness; G43.009 Migraine without aura, not intractable, without status migrainosus; O99.892 Other specified diseases and conditions complicating childbirth
CPT/HCPCS: 36415; 62322; 86850; 86900; 86901; 90707; 90716; 85025; J0665; J2003; J3010

== ENCOUNTER 2023-06-29 20:21 | Emergency (ER) | payer MEDICAID, SELFPAY ==
[2023-06-29 20:23] VITALS: BP 142/85; PULSE 96; RESP 18; TEMP 36; O2SAT 100
--- NOTE | 2023-06-29 20:30 | DI.RAD_ITS ---
Exam(s) XR FINGER LT MIDDLE EXAM: XR FINGER LT MIDDLE CLINICAL HISTORY: L distal 3rd finger pain. TECHNIQUE: 2D digital imaging was performed. Three views. COMPARISON: None. FINDINGS: BONES: No acute fracture is present. Mildly expansile cystic lesion in the distal phalanx may represe nt simple bone cyst versus is at aneurysmal bone cyst. JOINTS: No dislocation present. Joint spaces are maintained. SOFT TISSUE: Normal. IMPRESSION: No evidence of acute fracture, dislocation, or subluxation. 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 DATA REPOSITORY: RADIATION DOSE DELIVERED:
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
--- NOTE | 2023-06-29 21:46 | DI.VRAD_ITS ---
PROCEDURE INFORMATION: Exam: XR Left Finger(s) Exam date and time: 06/29/2023 9:32 PM Age: 33 years old Clinical indication: Pain and injury or trauma; Other: Inj involving diaper wipe container; Blunt trauma (contusions or hematomas); Left; Middle finger; Finger(s); Patient HX: L distal 3rd finger pain TECHNIQUE: Imaging protocol: Radiologic exam of the left fingers. Views: Minimum 2 views. COMPARISON: US SOFT TISSUE EXTREMITY 03/03/2022 11:46 AM FINDINGS: Bones/joints: 7 x 7 mm lucent lesion, 3rd distal phalanx, slight cortical scalloping without associated fracture or periostitis. No acute fracture or subluxation. Soft tissues: Digital soft tissue swelling. IMPRESSION: 1. No acute bony pathology. 2. 7 x 7 mm through distal phalangeal lesion as above favors benign enchondroma or aneurysmal bone cyst. Given slight cortical scalloping, follow up is recommended to assess stability. Dictated and Authenticated by: Fabienne Blanca MD. Ordering:YANETH Kent MD
[2023-06-29 22:47] VITALS: BP 140/82; PULSE 82; RESP 16
== END 2023-06-29 22:48 | disposition home or self-care (01) ==
PROVIDERS: Emergency Provider Physician Assistant; PCP Nurse Practitioner Family
DX: S60.032A Contusion of left middle finger without damage to nail, initial encounter (principal); D16.11 Benign neoplasm of short bones of right upper limb; W22.8XXA Striking against or struck by other objects, initial encounter; Y93.89 Activity, other specified; Y92.018 Other place in single-family (private) house as the place of occurrence of the external cause
CPT/HCPCS: 29130; 99283; 73140

== ENCOUNTER → 2023-07-04 01:22 | Outpatient (CLI) | payer MEDICAID, SELFPAY ==
--- NOTE | 2023-07-04 08:18 | DI.MRI_ITS ---
Exam(s) MR UPPER EXTREMITY LT WO CLINICAL HISTORY: LMF DISTAL PHALANX MASS,CONTUSION,R22.2,S60.032A. TECHNIQUE: Multiplanar multisequence MRI Examination was performed. CONTRAST MATERIAL: None COMPARISON: Plain films 29 June 2023 FINDINGS: Bones: Mildly expansile cystic lesion in the distal phalanx. A appears to be homogeneously fluid the consistent with a bone cyst. Cortex appears intact. There is no fracture or contusion pattern. No bone marrow edema is present Tendons: No evidence of tendon tear. No evidence of tenosynovitis. Soft tissues: Some edema seen at the dorsal aspect of the distal phalanx. IMPRESSION: Lesion in the distal phalanx is consistent with a simple bone cyst. Mild edema in in the dorsal soft tissues of the distal phalanx. DATA REPOSITORY:
== END ==
PROVIDERS: PCP Nurse Practitioner Family; Visit Provider Student in an Organized Health Care Education/Training Program
DX: M85.442 Solitary bone cyst, left hand (principal)
CPT/HCPCS: 73218

== ENCOUNTER 2023-08-07 14:14 | Outpatient (REF) | payer MEDICAID, SELFPAY ==
--- NOTE | 2023-08-07 13:30 | PAPFT_PTH ---
PATIENT: Driss Campa LOC: [facility] U#:[id number] AGE/SX: 33/F ROOM: RE08/07/[address]: She Castro CNM : 1990 BED: DIS: 08/07/2023 SPEC #: [id number] RECD: 08/07/23 17:42 STATUS: INEZ BARRON #: [id number] ANIL: 08/07/23 13:[address]: She Castro [facility]PT: [facility] Cytology RECD BY: Moon Waite ENTERED: 08/07/23 17:42 SP TYPE: PAPFT TRE DR: Shahana Heath APRN Tissues: 1 - CX/ENDOCX FOR PAP SMEARS Procedures: PAP THIN PREP/UVM Screening HPV DNA PROBE Comments: [id number] (HPV 16 & 18/45)
== END 2023-08-07 14:15 | disposition home or self-care (01) ==
LOC: LBN 14:14
PROVIDERS: PCP Nurse Practitioner Adult Health; Visit Provider Advanced Practice Midwife
DX: Z12.4 Encounter for screening for malignant neoplasm of cervix (principal); R87.610 Atypical squamous cells of undetermined significance on cytologic smear of cervix (ASC-US); Z11.51 Encounter for screening for human papillomavirus (HPV); R87.810 Cervical high risk human papillomavirus (HPV) DNA test positive; Z87.410 Personal history of cervical dysplasia
CPT/HCPCS: 88142; 87624

== ENCOUNTER 2023-08-13 15:38 | Outpatient (CLI) | payer MEDICAID, SELFPAY ==
--- NOTE | 2023-08-13 09:30 | DI.RAD_ITS ---
Exam(s) XR FINGER LT MIDDLE EXAM: XR FINGER LT MIDDLE EXAM DATE/TIME: CLINICAL HISTORY: LEFT MIDDLE FINGER INJURY. TECHNIQUE: 2D digital imaging was performed of the left finger. Three views were obtained. PA/AP, oblique, and lateral views were obtained. COMPARISON: Comparison is made with prior examinations. FINDINGS: BONES: No acute fracture is present. No bony destructive lesion is seen. There is a stable expansile lytic lesion in the distal phalanx of the middle finger. No pathologic fracture or periosteal reacti on is seen. No soft tissue calcifications are present. JOINTS: No dislocation is present. SOFT TISSUE: Normal. IMPRESSION: Stable appearance of the lucent lesion involving the distal phalanx of the left middle finger. No ev idence of pathologic fracture. DATA REPOSITORY: RADIATION DOSE DELIVERED:
== END 2023-08-13 15:39 | disposition home or self-care (01) ==
LOC: DIORS 15:38
PROVIDERS: PCP Nurse Practitioner Adult Health; Visit Provider Student in an Organized Health Care Education/Training Program
DX: M85.442 Solitary bone cyst, left hand (principal)
CPT/HCPCS: 73140

== ENCOUNTER 2023-09-07 03:00 | Outpatient (CLI) | payer MEDICAID, SELFPAY ==
[2023-09-07 09:05] LABS: Calculated LDL 216 mg/dL (<100); Cholesterol 303 mg/dL (<200); HDL Cholesterol 68 mg/dL (40-60); Triglyceride 96 mg/dL (<150)
== END 2023-09-07 03:01 | disposition home or self-care (01) ==
LOC: LBO 03:00
PROVIDERS: PCP Nurse Practitioner Adult Health; Referring Provider Nurse Practitioner Adult Health; Visit Provider Nurse Practitioner Adult Health
DX: E78.5 Hyperlipidemia, unspecified (principal)
CPT/HCPCS: 36415; 80061

== ENCOUNTER 2023-09-07 10:43 | Outpatient (REF) | payer MEDICAID, SELFPAY ==
--- NOTE | 2023-09-07 10:10 | ENDO_PTH ---
PATIENT: Driss Campa LOC: [facility] U#:[id number] AGE/SX: 33/F ROOM: RE09/07/[address]: So Dean : 1990 BED: DIS: 09/07/2023 SPEC #: [id number] RECD: 09/07/23 12:21 STATUS: INEZ REWinifred #: [id number] ANIL: 09/07/23 10:[address]: So Dean DEPT: Surgical Specimen RECD BY: Moon Waite ENTERED: 09/07/23 12:21 SP TYPE: Endo OTHR DR: Shahana Heath APRN Tissues: 1 - ENDOCERVICAL BX/CURRETTE 2 - CERVICAL BIOPSY Procedures: GROSS AND MICRO LEVEL 4 Comments: [id number]
== END 2023-09-07 10:44 | disposition home or self-care (01) ==
LOC: LBN 10:43
PROVIDERS: PCP Nurse Practitioner Adult Health; Visit Provider Obstetrics & Gynecology Gynecology
DX: Z87.42 Personal history of other diseases of the female genital tract (principal); R87.611 Atypical squamous cells cannot exclude high grade squamous intraepithelial lesion on cytologic smear of cervix (ASC-H)
CPT/HCPCS: 88305

== ENCOUNTER 2023-10-09 05:09 | Outpatient (CLI) | payer MEDICAID, SELFPAY ==
[2023-10-09 08:48] LABS: HCT 39.7 % (36.0-46.0); HGB 13.4 g/dL (11.2-15.7); MCH 31.1 pg (27.0-33.0); MCHC 33.8 % (32.0-36.0); MCV 92 fL (80-95); MPV 9.4 fL (8.0-11.0); Platelet Count 280 10^3/uL (130-400); RBC 4.31 10^6/uL (3.93-5.22); RDW 13.8 % (11.7-14.6); WBC 5.69 10^3/uL (4.4-10.8)
[2023-10-09 09:23] LABS: HCG Qual (Serum) Negative
[2023-10-09 09:31] LABS: Anion Gap 7.4 mmol/L (3-11); BUN 15 mg/dL (7-18); CO2 27.6 mmol/L (21.0-32.0); CREATININE 0.8 mg/dL (0.55-1.02); Calcium 9.8 mg/dL (8.5-10.1); Chloride 104 mmol/L (98-107); Estimated GFR 100.96 (mL/min/1.73m2); Glucose 73 mg/dL (74-106); Potassium 3.9 mmol/L (3.5-5.1); Sodium 139 mmol/L (136-145)
[2023-10-12 16:44] LABS: Apolipoprotein B, Serum 130 mg/dL (48-124); Beta VLDL Cholesterol Not Detected mg/dL (<15); Beta VLDL Triglycerides Not Detected mg/dL (<15); Cholesterol, Total, CDC 274 mg/dL; Chylomicron Cholesterol Not Detected; Chylomicron Triglycerides Not Detected; HDL Cholesterol, CDC 59 mg/dL (>=50); LDL Cholesterol 166 mg/dL; LDL Triglycerides 51 mg/dL (<=50); Lp(a) Cholesterol 32 mg/dL (<5); LpX Not detected; Triglycerides, CDC 116 mg/dL; VLDL Cholesterol 17 mg/dL (<30); VLDL Triglycerides 49 mg/dL (<120)
== END 2023-10-09 05:10 | disposition home or self-care (01) ==
LOC: LBO 05:09
PROVIDERS: PCP Nurse Practitioner Adult Health; Visit Provider Obstetrics & Gynecology Gynecology
DX: E78.00 Pure hypercholesterolemia, unspecified (principal); Z01.818 Encounter for other preprocedural examination
CPT/HCPCS: 36415; 80048; 80061; 85027; 86850; 86900; 86901; 82172; 82664; 84703

== ENCOUNTER 2023-10-10 07:30 | Day surgery (SDC) | payer MEDICAID, SELFPAY ==
[2023-10-10] VITALS (7 sets, daily range): BP systolic 90–106; BP diastolic 40–68; PULSE 57–78; RESP 11–16; TEMP 36.1–36.8; O2SAT 96–100; BMI 28.8
[2023-10-10] MEDS: Lactated Ringers 1,000 ML 125 ML IV (08:13)
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
--- NOTE | 2023-10-10 10:17 | CER_PTH ---
PATIENT: Driss Campa LOC: [facility] U#:[id number] AGE/SX: 33/F ROOM: RE10/10/[address]: So Dean : 1990 BED: DIS: 10/10/2023 SPEC #: [id number] RECD: 10/10/23 13:00 STATUS: INEZ BARRON #: [id number] ANIL: 10/10/23 10:[address]: So Dean DEPT: Surgical Specimen RECD BY: Moon Waite ENTERED: 10/10/23 13:00 SP TYPE: CER OTHR DR: Shahana Heath APRN Tissues: 1 - CERVICAL LEEP/LOOP Procedures: GROSS AND MICRO LEVEL 5 Comments: [id number]
[2023-10-10] MEDS: Lidocaine 1% Multi-Dose W/EPI 1/100,000 50 ML VIAL (10:30)
--- NOTE | 2023-10-10 10:42 | W.PM.DSUDISC ---
Date of service: 10/10/23 Time of Service: 10:42 Discharge Plan Disposition Patient Disposition: Home Condition: Fair Discharge Details Reason For Visit: LEEP under blow down helper Provider: So Dean Primary Care Provider: Shahana Heath Home Meds and New Rx's Prescriptions: No Action prenat.vits,ramón,jnp-qoxi-kazhn Tablet 1 tab PO DAILY magnesium hydroxide 400 mg (170 mg magnesium) tablet,chewable 400 mg PO DAILY acetaminophen [Tylenol] 325 mg capsule 325 mg PO ONCE PRN cyproheptadine 4 mg tablet 4 mg PO Q6H PRN (Reason: migraine headache) Qty: 30 1RF Discharge Instructions Additional Instructions: You can expect yellow or charcoal colored vaginal discharge for the next week. No tampons or intercourse until your 4-week postop visit with Dr. Dean. You may use ibuprofen 600 mg every 6 hours (3 tablets of the 200 mg [id number]-isc-fqpqvyr ibuprofen) for pain along with Tylenol (acetaminophen) 325 mg every 6 hours for pain. Please call the office if you have a temperature over 100 ?F or pain worsen uterine cramping or bleeding like a period. I recommend showers only for the first 4 weeks after your procedure. Keep your follow-up appointment with Dr. Dean in 4 weeks Stand Alone Forms: Anesthesia Discharge Inst., DSU Post BEREAVEMENT PROGRAM COORDINATOR Surg W/O [facility] (DSU) Referrals: So Dean MD [ [facility] STAFF PHYSICIAN] - 11/05/23 9:00 am Activity:: Activity as Tolerated Diet:: As Tolerated Discharge Orders Discharge Orders: Discharge Order (Routine); Ordered 10/10/23 Ordered By: So Dean
--- NOTE | 2023-10-10 10:45 | W.PM.OP ---
Date of service: 10/10/23 Time of Service: 10:45 Operative Note Operative Note DATE OF PROCEDURE: 10/10/23 PRE-OP DIAGNOSIS: MILDRED-2, anxiety and pain with office LEEP POST-OP DIAGNOSIS: same PROCEDURE: LEEP SURGEON: So Dean Refer to Anesthesia Record ESTIMATED BLOOD LOSS: 0 PATHOLOGY: other (leep specimen with 4-0 Monocryl suture marking 12 o'clock position) COMPLICATIONS: None Patient was transported to: PACU Patient's condition: stable Indications: 33yo female with a previous colposcopy directed biopsy result of CIN2. Pt declined to have the procedure until after she had a this year. An attempt at an office LEEP on 10/01/23 was unsuccessful after the patient was unable to tolerate the procedure and it was stopped prior to any specimen obtained. She was counseled regarding the need for an excisional procedure and had agreed to have the procedure performed under anesthesia in the operating room. Findings: Previous attempt at LEEP site was not noted on inspection. One intact specimen was obtained. Procedure Description: Patient was taken to the operating room where she was placed in the dorsal supine position and laryngeal mask anesthesia was administered without difficulty. She was then placed in the dorsal lithotomy position in [facility] stirrups and the vagina prepped with Betadine and sterile drapes were applied. Surgical timeout was performed an insulated Graves speculum with attached smoke removal device was inserted into the vagina. The body of the cervix was infiltrated in a circumferential fashion with a dilute solution of epinephrine and 1% lidocaine. The anterior lip of the cervix was grasped with a insulated tenaculum. A [id number] radius loop electrode was attached to a cutting current of 40watts and a single specimen of ectocervix was removed in one pass. The 12 o'clock position of the cervix was marked with a stitch of 4-0 Monocryl. The sample was passed off of the operative field. A ball electrode was then applied to the LEEP bed with a current of 40 coag/1 cutting with satisfactory hemostasis achieved. The LEEP bed was then treated with application of Monsel's paste with excellent hemostasis achieved. After final inspection of the cervical excision site instruments were removed from the patient's vagina. She was then placed in the dorsal supine position, awakened and LMA removed. She was transported to recovery area in stable condition.
--- NOTE | 2023-10-10 11:55 | W.ANESPOSTOP ---
Postoperative Evaluation Date, Time and Location Date Performed: 10/10/23 Time Performed: 11:55 Patient Location: Day Surgery Unit Vital Signs Most Recent Imported Vital Signs: Most Recent Vital Signs Temp Pulse Resp BP Pulse Ox 36.1 C L 57 L 16 98/52 L 97 10/10/23 11:42 10/10/23 11:42 10/10/23 11:42 10/10/23 11:42 10/10/23 11:42 Pain Score Most Recent Pain Score: Most Recent Pain Score Pain Level 0 10/10/23 11:42 Assessment Mental Status: Awake (Alert & Oriented to Patient Baseline) Airway and Respiratory Function: Patent airway with normal (patient baseline) respiratory exam Cardiovascular Function: Hemodynamically Stable Hydration Status: Adequately Hydrated Nausea & Vomiting: No Nausea or Vomiting Pain: Pt. Denies Any Pain Peripheral Nerve Block: Patient did not receive a nerve block
== END 2023-10-10 12:12 | disposition home or self-care (01) ==
PROVIDERS: PCP Nurse Practitioner Adult Health; Visit Provider Obstetrics & Gynecology Gynecology
PROC: 0UBC7ZZ Excision of Cervix, Via Natural or Artificial Opening (ICD-10-PCS; CPT 57522; principal; 2023-10-10 09:00)
DX: D06.9 Carcinoma in situ of cervix, unspecified (principal); F41.9 Anxiety disorder, unspecified
CPT/HCPCS: 57522; 88307; J0665; J1100; J1885; J2001; J2004; J2250; J2405; J2704; J3010

== ENCOUNTER 2023-10-12 02:41 | Outpatient (CLI) | payer MEDICAID, SELFPAY ==
[2023-10-16 17:44] LABS: Apolipoprotein B, Serum 118 mg/dL (48-124); Beta VLDL Cholesterol Not Detected mg/dL (<15); Beta VLDL Triglycerides Not Detected mg/dL (<15); Cholesterol, Total, CDC 258 mg/dL; Chylomicron Cholesterol Not Detected; Chylomicron Triglycerides Not Detected; HDL Cholesterol, CDC 55 mg/dL (>=50); LDL Cholesterol 139 mg/dL; LDL Triglycerides 60 mg/dL (<=50); Lp(a) Cholesterol 27 mg/dL (<5); LpX Not detected; Triglycerides, CDC 197 mg/dL; VLDL Cholesterol 37 mg/dL (<30); VLDL Triglycerides 116 mg/dL (<120)
== END 2023-10-12 02:42 | disposition home or self-care (01) ==
LOC: LBO 02:41
PROVIDERS: PCP Nurse Practitioner Adult Health; Referring Provider Nurse Practitioner Adult Health; Visit Provider Nurse Practitioner Adult Health
DX: E78.00 Pure hypercholesterolemia, unspecified (principal)
CPT/HCPCS: 36415; 80061; 82172; 82664

== ENCOUNTER 2023-11-15 01:26 | Outpatient (CLI) | payer MEDICAID, SELFPAY ==
[2023-11-17 14:39] LABS: Lipoprotein (a) 295 nmol/L (<75)
[2023-11-19 17:15] LABS: Apolipoprotein B, Serum 128 mg/dL (48-124); Beta VLDL Cholesterol Not Detected mg/dL (<15); Beta VLDL Triglycerides Not Detected mg/dL (<15); Cholesterol, Total, CDC 267 mg/dL; Chylomicron Cholesterol Not Detected; Chylomicron Triglycerides Not Detected; HDL Cholesterol, CDC 60 mg/dL (>=50); LDL Cholesterol 167 mg/dL; LDL Triglycerides 38 mg/dL (<=50); Lp(a) Cholesterol 30 mg/dL (<5); LpX Not detected; Triglycerides, CDC 89 mg/dL; VLDL Cholesterol 10 mg/dL (<30); VLDL Triglycerides 35 mg/dL (<120)
== END 2023-11-15 01:27 | disposition home or self-care (01) ==
LOC: LBO 01:26
PROVIDERS: PCP Nurse Practitioner Adult Health; Referring Provider Nurse Practitioner Adult Health; Visit Provider Nurse Practitioner Adult Health
DX: E78.41 Elevated Lipoprotein(a) (principal); E78.00 Pure hypercholesterolemia, unspecified
CPT/HCPCS: 36415; 80061; 83695; 82172; 82664

== ENCOUNTER 2023-12-13 11:02 | Outpatient (CLI) | payer MEDICAID, SELFPAY ==
--- NOTE | 2023-12-13 09:30 | DI.RAD_ITS ---
Exam(s) XR FINGER LT MIDDLE EXAM: XR FINGER LT MIDDLE EXAM DATE/TIME: CLINICAL HISTORY: F/U BONE CYST. TECHNIQUE: 2D digital imaging was performed of the left finger. Three views were obtained. PA/AP, oblique, and lateral views were obtained. COMPARISON: Comparison is made with prior examinations. FINDINGS: BONES: No acute fracture is present. The well-circumscribed cyst in the distal phalanx of the left mi ddle finger is stable. No pathologic fracture is seen. No periosteal reaction or soft tissue calcif ication is seen. JOINTS: No dislocation is present. The joint spaces are well maintained. SOFT TISSUE: Normal. IMPRESSION: Stable cyst in the distal phalanx of the left middle finger without complication. DATA REPOSITORY: RADIATION DOSE DELIVERED:
== END 2023-12-13 11:03 | disposition home or self-care (01) ==
LOC: DIORS 11:02
PROVIDERS: PCP Nurse Practitioner Adult Health; Referring Provider Nurse Practitioner Adult Health; Visit Provider Student in an Organized Health Care Education/Training Program
DX: M85.642 Other cyst of bone, left hand (principal)
CPT/HCPCS: 73140

== ENCOUNTER 2024-11-07 09:57 | Outpatient (REF) | payer OTHER, SELFPAY ==
--- NOTE | 2024-11-07 09:40 | PAPFT_PTH ---
PATIENT: Driss Campa LOC: [facility] U#:[id number] AGE/SX: 34/F ROOM: RE11/07/[address]: Kenyatta Mabry MD : 1990 BED: DIS: 11/07/2024 SPEC #: [id number] RECD: 11/07/24 13:13 STATUS: INEZ REQ #: [id number] ANIL: 11/07/24 09:[address]: Kenyatta Mabry DEPT: [facility] Cytology RECD BY: Moon Waite ENTERED: 11/07/24 13:14 SP TYPE: PAPFT OTHR DR: Shahana Heath APRN Tissues: 1 - CX/ENDOCX FOR PAP SMEARS Procedures: PAP THIN PREP/UVM Screening HPV DNA PROBE Comments: [id number] (HPV 16 & 18/45)
== END 2024-11-07 09:58 | disposition home or self-care (01) ==
LOC: LBN 09:57
PROVIDERS: PCP Nurse Practitioner Adult Health; Visit Provider Obstetrics & Gynecology
DX: Z12.4 Encounter for screening for malignant neoplasm of cervix (principal)
CPT/HCPCS: 88142; 87624

== ENCOUNTER 2025-01-08 16:10 | Outpatient (CLI) | payer OTHER, SELFPAY ==
--- NOTE | 2025-01-08 | DI.RAD_ITS ---
Exam(s) XR FINGER LT MIDDLE EXAM: XR FINGER LT MIDDLE CLINICAL HISTORY: Pain of lt middle finger, M79.645. TECHNIQUE: 2D digital imaging was performed. COMPARISON: CR XR FINGER LT MIDDLE from 12/13/2023 FINDINGS: 3 views There is an expansile bone lesion in the distal phalanx of the 3rd-middle finger,, this occupying the proximal mid aspects with sparing of the tuft and not associated with cortical destruction. Onto the three views there is a thin line evident within this bone lesion which may represent a very subtle pathologic fracture at this level. No findings in the proximal and middle phalanges. No radiopaque foreign bodies evident. IMPRESSION: Expansile bone lesion in the distal phalanx, not associated with cortical disruption. Differential diagnosis includes enchondroma, unicameral bone cyst, aneurysmal bone cyst, giant cell tumor, chondromyxoid fibroma. Subtle linear lucency within this bone lesion is noted on to the 3 images. Cannot exclude a subtle nondisplaced pathologic fracture line at this level. DATA REPOSITORY: RADIATION DOSE DELIVERED:
== END 2025-01-08 16:30 ==
LOC: DI 16:11
PROVIDERS: PCP Nurse Practitioner Adult Health; Visit Provider Nurse Practitioner Family
DX: M79.645 Pain in left finger(s) (principal); R93.89 Abnormal findings on diagnostic imaging of other specified body structures
CPT/HCPCS: 73140

== ENCOUNTER 2025-03-02 18:21 | Emergency (ER) | payer OTHER, SELFPAY ==
[2025-03-02 18:23] VITALS: BP 152/82; PULSE 82; RESP 16; TEMP 36.9; O2SAT 98
[2025-03-02 18:26] VITALS: BP 152/82; PULSE 82; RESP 16; TEMP 36.9; O2SAT 98
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
[2025-03-02 19:29] LABS: Abs Immature Grans 0.02 10^3/uL (0.0-0.06); HCT 40.4 % (36.0-46.0); HGB 13.5 g/dL (11.2-15.7); Immature Grans % 0.2 %; MCH 30.7 pg (27.0-33.0); MCHC 33.4 % (32.0-36.0); MCV 92 fL (80-95); MPV 9.4 fL (8.0-11.0); Platelet Count 273 10^3/uL (130-400); RBC 4.40 10^6/uL (3.93-5.22); RDW 12.4 % (11.7-14.6); RDW-SD 42.1 fL; WBC 9.20 10^3/uL (4.4-10.8)
[2025-03-02 19:39] LABS: Glucose Negative (Negative)
[2025-03-02 19:45] LABS: ALT 20 U/L (14-59); AST 17 U/L (15-37); Albumin 4.1 g/dL (3.4-5.0); Alkaline Phosphatase 58 U/L (46-116); Anion Gap 9.6 mmol/L (3-11); BUN 11 mg/dL (7-18); Bilirubin, Total 0.2 mg/dL (0.2-1.0); CO2 27.4 mmol/L (21.0-32.0); Calcium 9.8 mg/dL (8.5-10.1); Chloride 101 mmol/L (98-107); Estimated GFR 117.77 (mL/min/1.73m2); Glucose 97 mg/dL (74-106); Magnesium 2.1 mg/dL (1.8-2.4); Potassium 3.8 mmol/L (3.5-5.1); RBC Negative HPF (0-2); Sodium 138 mmol/L (136-145); Total Protein 8.0 g/dL (6.4-8.2)
--- NOTE | 2025-03-02 19:45 | DI.CT_ITS ---
Exam(s) CT ABDOMEN PELVIS W EXAM: CT ABDOMEN PELVIS W CLINICAL HISTORY: RLQ pain w nausea. TECHNIQUE: Imaging Protocol: Axial computed tomography images with coronal and sagittal reformatted images were created and reviewed CONTRAST MATERIAL: Intravenous: Omnipaque 350 Contrast volume:75 ml Oral: no COMPARISON: No exams were available for comparison FINDINGS: ABDOMEN and PELVIS: Lung Bases: No acute findings. Liver: Normal density. No suspicious mass. Gallbladder and biliary tract: No radiodense calculus. No wall thickening or pericholecystic fluid. No biliary dilation. Pancreas: Normal density. No abnormal calcifications or inflammatory process. No evidence of mass. Spleen: Normal. Kidneys: Normal size, contour and axis. No radiodense stones. No obstructive uropathy. No suspicious masses seen. Adrenal glands: No masses seen. Vasculature: Abdominal aorta non-dilated. Soft tissues: Unremarkable. Bladder: No gross wall thickening. No calculi.No focal mass. Bowel: No obstruction. No bowel wall thickening. Appendix normal. Peritoneal cavity: No ascites. No focal collection. No mesenteric inflammatory response. No free air. Bones: Unremarkable for age. Reproductive organs: Unremarkable. Lymph nodes: No pathologically enlarged lymph nodes. IMPRESSION:: No acute abnormality in the abdomen or pelvis. The preliminary [facility] report was reviewed. RADIATION DOSE DELIVERED: 641.7mGy.cm Total DLP DATA REPOSITORY: All CT scans at this facility are submitted to the National Radiology Data Registry (NRDR) Dose Index Registry (DIR) with the [employer] (ACR). RADIATION OPTIMIZATION: All CT scans at this facility use at least one of these dose optimization techniques: automated exposure control; mA and/or kV adjustment per patient size (includes targeted exams where dose is matched to clinical indication); or iterative reconstruction.
[2025-03-02 19:49] LABS: Lipase 46 U/L (<78)
[2025-03-02] MEDS: FAMOTIDINE 20 MG in Normal Saline 100 ML 400 MG IVPB (19:52)
[2025-03-02 19:54] LABS: Troponin I < 4 ng/L (<or=51)
[2025-03-02] MEDS: Omnipaque 350 MG/ML 100 ML BTL IJ (20:46)
[2025-03-02] MEDS: Normal Saline - Diluent 50 ML VIAL IJ (20:48)
[2025-03-02] MEDS: Normal Saline Flush 10 ML SYR IVP (20:48)
--- NOTE | 2025-03-02 21:51 | DI.[facility]_ITS ---
PROCEDURE INFORMATION: Exam: CT Abdomen And Pelvis With Contrast Exam date and time: 03/02/2025 8:46 PM Age: 34 years old Clinical indication: Right lower quadrant (RLQ) abd pain, nausea TECHNIQUE: Imaging protocol: Computed tomography of the abdomen and pelvis with contrast. Radiation optimization: All CT scans at this facility use at least one of these dose optimization techniques: automated exposure control; mA and/or kV adjustment per patient size (includes targeted exams where dose is matched to clinical indication); or iterative reconstruction. Contrast material: OMNIPAQUE 350; Contrast volume: 75 ml; Contrast route: INTRAVENOUS (IV); COMPARISON: US OB 2-3 TRIMESTER 02/09/2023 8:22 AM FINDINGS: Lungs: No acute infiltrate in either lung base. Liver: Normal. No mass. Gallbladder and biliary ducts: Normal. No calcified stones. No ductal dilation. Pancreas: Normal. No ductal dilation. Spleen: Normal. No splenomegaly. Adrenal glands: Normal. No mass. Kidneys and ureters: No hydronephrosis. No calcified renal or ureteral stones. No perinephric stranding or perinephric fluid. Stomach and bowel: Unremarkable. No obstruction. No mucosal thickening. Appendix: Normal appendix. Intraperitoneal space: No intraperitoneal free air. Trace free fluid in the cul de sac. Vasculature: The abdominal aorta is normal in caliber without aneurysm or dissection. Lymph nodes: No enlarged lymph nodes. Urinary bladder: Unremarkable as visualized. Reproductive: Normal uterus and right ovary. Partially-collapsed 12 mm left ovarian cyst. Trace free fluid in the cul-de-sac. Bones/joints: Unremarkable for patient age. Soft tissues: Unremarkable. IMPRESSION: 1. No acute intra-abdominal or pelvic process. 2. Normal appendix. Dictated and Authenticated by: Yevgeniy Hughes MD. Orderin Porfirio Horowitz MD
[2025-03-02 22:27] VITALS: BP 98/63; PULSE 54; RESP 16; O2SAT 99
== END 2025-03-02 22:29 | disposition home or self-care (01) ==
PROVIDERS: Emergency Provider Nurse Practitioner Family; PCP Nurse Practitioner Adult Health
DX: R10.31 Right lower quadrant pain (principal); R10.11 Right upper quadrant pain; Z59.10 Inadequate housing, unspecified; Z59.89 Other problems related to housing and economic circumstances; R11.0 Nausea
CPT/HCPCS: 36415; 80053; 81025; 83690; 96365; 99285; 74177; 81003; 81015; 83735; 84484; 85025; 99284; J3490